=== PATIENT | male | born 1950 | race Caucasian/White ===

== ENCOUNTER 2021-03-09 16:27 | Inpatient (IN) | payer MEDICARE ==
[2021-03-09] MEDS ORDERED: HYDROmorphone 0.5 MG/0.5 ML Syringe IVPUSH ONE (17:56)
[2021-03-09] MEDS ORDERED: Sodium Chloride 0.9% 1,000 ML IV SCH (18:00)
--- NOTE | 2021-03-09 18:02 | EDM.PDOC ---
ED HPI GENERAL MEDICAL PROBLEM - General Chief Complaint: Abdominal Pain Stated Complaint: STOMACH PAIN Time Seen by Provider: 03/09/21 17:50 Source of Information: Reports: Patient History Limitations: Reports: No Limitations - History of Present Illness INITIAL COMMENTS - FREE TEXT/NARRATIVE: 70-year-old male who has had worsening epigastric pain for the past 3 days, has developed peritoneal irritation but no nausea or vomiting, no radiation of pain to his back, no fevers or chills. He is very fatigued, denies any change in bowels. No history of abdominal surgeries. He drinks "3 cases of beer a year". He has been told he is a diabetic but stopped taking all of his medication 5 months ago because he just did not want to take them. No fevers or chills. Onset: Gradual Duration: Day(s): (3 days) Location: Reports: Abdomen (Upper abdomen, epigastric) Quality: Reports: Sharp, Stabbing Worsens with: Reports: Movement Associated Symptoms: Reports: Malaise, Weakness, Other (Pain with breathing but no shortness of breath) Epigastric Pain Score (Numeric/FACES): 8 - Related Data Allergies Allergy/AdvReac Type Severity Reaction Status Date / Time No Known Allergies Allergy Verified 03/09/21 19:43 Home Meds: Home Meds NK [No Known Home Meds] 03/09/21 [History] Past Medical History HEENT History: Reports: Impaired Vision Respiratory History: Reports: COPD - Infectious Disease History Infectious Disease History: Reports: Chicken Pox, Measles, Mumps Social & Family History - Tobacco Use Tobacco Use Status *Q: Current Every Day Tobacco User Years of Tobacco use: 60 Packs/Tins Daily: 0.5 - Caffeine Use Caffeine Use: Reports: Coffee, Soda, Tea - Recreational Drug Use Recreational Drug Use: No ED ROS GENERAL - Review of Systems Review Of Systems: See Below Constitutional: Reports: Malaise, Decreased Appetite. Denies: Fever, Chills HEENT: Reports: No Symptoms Respiratory: Reports: Pleuritic Chest Pain Cardiovascular: Denies: Palpitations Endocrine: Reports: Fatigue GI/Abdominal: Reports: Abdominal Pain, Decreased Appetite. Denies: Constipation, Diarrhea, Nausea, Vomiting : Reports: Other (Increased urinary frequency, no dysuria) Skin: Reports: No Symptoms Neurological: Reports: Weakness. Denies: Headache Psychiatric: Reports: No Symptoms ED EXAM, GI/ABD - Physical Exam Exam: See Below Exam Limited By: No Limitations General Appearance: Alert, Mild Distress, Other (Looks fairly uncomfortable, more comfortable lying on his left side) Eyes: Bilateral: Normal Appearance (No jaundice) Head: Atraumatic Respiratory/Chest: Lungs Clear Cardiovascular: Regular Rate, Rhythm GI/Abdominal Exam: Guarding (Significant guarding and rebound tenderness across the upper abdomen especially epigastric area) Extremities: No: Pedal Edema Neurological: Alert, Oriented Psychiatric: Flat Affect Skin Exam: Warm, Dry Course - Vital Signs Last Recorded V/S: Last Vital Signs Temp 97.7 F 03/09/21 23:21 Pulse 89 03/10/21 00:00 Resp 16 03/10/21 00:00 BP 127/76 03/10/21 00:00 Pulse Ox 96 03/10/21 00:00 - Orders/Labs/Meds Orders: Medication Orders Dextrose/Water (50% Dextrose In Water 50 Ml Syringe) 50 ml IVPUSH ONETIME PRN PRN Reason: Blood Glucose Enoxaparin Sodium (Enoxaparin 40 Mg/0.4 Ml Syringe) 40 mg SUBCUT DAILY LAUREN Last Admin: 03/09/21 23:01 Dose: 40 mg Documented by: VARHJAM Sodium Chloride (Normal Saline) 2,000 mls @ 500 mls/hr IV .CONTINUOUS PRN PRN Reason: Blood Glucose Dextrose/Sodium Chloride (Dextrose 5%-1/2 Ns) 1,000 mls @ 150 mls/hr IV .CONTINUOUS PRN PRN Reason: Blood Glucose Last Admin: 03/09/21 22:32 Dose: 150 mls/hr Documented by: VARHJAM Potassium Chloride 20 meq/ (Premix) 100 mls @ 50 mls/hr IV Q2H PRN PRN Reason: Hypokalemia Potassium Chloride 20 meq/ (Premix) 100 mls @ 50 mls/hr IV Q2H PRN PRN Reason: Hypokalemia Magnesium Sulfate (Magnesium Sulfate In Water 2 Gm/50 Ml) 50 mls @ 25 mls/hr IV ONETIME PRN PRN Reason: low magnesium Sodium Phosphate 60 mmole/ (Sodium Chloride) 270 mls @ 62.5 mls/hr IV ONETIME PRN PRN Reason: Low phophorus Insulin Regular in 0.9 % NACL (Myxredlin In Ns 100 Unit/100 Ml) 100 mls @ 7.484 mls/hr IV ASDIRECTED LAUREN; Protocol Last Infusion: 03/10/21 00:04 Dose: 0.05 units/kg/hr, 4 mls/hr Documented by: JESSIE Cosigned by: ALANNA Infusion: 03/09/21 23:09 Dose: 0.04 units/kg/hr, 3 mls/hr Documented by: JESSIE Cosigned by: ALANNA Admin: 03/09/21 22:20 Dose: 0.05 units/kg/hr, 4 mls/hr Documented by: JESSIE Cosigned by: ALANNA Insulin Glargine (Insulin Glargine,Human Rec. Analog 100 Units/Ml 3 Ml Pen) 30 units SUBCUT BEDTIME LAUREN Last Admin: 03/09/21 23:10 Dose: 30 units Documented by: JESSIE Cosigned by: ALANNA Ondansetron HCl (Ondansetron 4 Mg/2 Ml Sdv) 4 mg IV Q4H PRN PRN Reason: Nausea/Vomiting Oxycodone HCl (Oxycodone 5 Mg Tab) 5 mg PO Q4H PRN PRN Reason: Pain (moderate 4-6) Pantoprazole Sodium (Pantoprazole 40 Mg Vial) 40 mg IV Q12H [facility] Polyethylene Glycol (Polyethylene Glycol 3350 Powder 17 Gm Packet) 17 gm PO DAILY PRN PRN Reason: Constipation Potassium Chloride (Potassium Chloride 10% 20 Meq/15 Ml Soln 15 Ml Ud Cup) 20 meq PO NOW PRN PRN Reason: Hypokalemia Last Admin: 03/09/21 23:18 Dose: 20 meq Documented by: JESSIE Potassium Chloride (Potassium Chloride 10% 20 Meq/15 Ml Soln 15 Ml Ud Cup) 40 meq PO NOW PRN PRN Reason: Hypokalemia Potassium Chloride (Potassium Chloride 10% 20 Meq/15 Ml Soln 15 Ml Ud Cup) 40 meq PO Q2H PRN PRN Reason: Hypokalemia Sodium Chloride (Sodium Chloride 0.9% 10 Ml Syringe) 10 ml FLUSH ASDIRECTED PRN PRN Reason: Keep Vein Open Labs: Laboratory Tests 03/09/21 03/09/21 03/09/21 Range/Units 17:53 18:15 18:15 WBC 9.8 (4.5-11.0) K/uL RBC 4.80 (4.30-5.90) M/uL Hgb 15.6 H (12.0-15.0) g/dL Hct 44.9 (40.0-54.0) % MCV 94 (80-98) fL MCH 33 H (27-31) pg MCHC 35 (32-36) % Plt Count 120 L (150-400) K/uL Neut % (Auto) 68.0 H (36-66) % Lymph % (Auto) 20.2 L (24-44) % Shelby % (Auto) 10.7 H (2-6) % Eos % (Auto) 1.0 L (2-4) % Baso % (Auto) 0.1 (0-1) % Sodium 125 L (140-148) mmol/L Potassium 5.1 (3.6-5.2) mmol/L Chloride 91 L (100-108) mmol/L Carbon Dioxide 25 (21-32) mmol/L Anion Gap 14.1 H (5.0-14.0) mmol/L BUN 20 H (7-18) mg/dL Creatinine 1.4 H (0.8-1.3) mg/dL Est Cr Clr Drug Dosing 47.21 mL/min Estimated GFR (MDRD) 50 L (>60) Glucose 812 H* (74-106) mg/dL Lactic Acid (0.4-2.0) mmol/L Calcium 8.6 (8.5-10.1) mg/dL Total Bilirubin 0.6 (0.2-1.0) mg/dL AST 73 H (15-37) U/L ALT 109 H (12-78) U/L Alkaline Phosphatase 276 H (46-116) U/L Total Protein 7.6 (6.4-8.2) g/dL Albumin 2.6 L (3.4-5.0) g/dL Globulin 5.0 H (2.3-3.5) g/dL Albumin/Globulin Ratio 0.5 L (1.2-2.2) Lipase 94 (73-393) U/L Urine Color Yellow (YELLOW) Urine Appearance Clear (CLEAR) Urine pH 6.5 (5.0-8.0) Ur Specific Crystal 1.010 (1.008-1.030) Urine Protein Negative (NEGATIVE) mg/dL Urine Glucose (UA) 500 H (NEGATIVE) mg/dL Urine Ketones Negative (NEGATIVE) mg/dL Urine Occult Blood Trace-intact H (NEGATIVE) Urine Nitrite Negative (NEGATIVE) Urine Bilirubin Negative (NEGATIVE) Urine Urobilinogen 0.2 (0.2-1.0) EU/dL Ur Leukocyte Esterase Negative (NEGATIVE) Urine RBC 0-5 (0-5) Urine WBC Not seen (0-5) Ur Epithelial Cells Not seen Amorphous Sediment Not seen Urine Bacteria Not seen Urine Mucus Not seen Influenza Type A RNA (NEGATIVE) RSV RNA (INAAT) (NEGATIVE) Influenza Type B RNA (NEGATIVE) SARS-CoV-2 RNA (MINDY) (NEGATIVE) 03/09/21 03/09/21 Range/Units 18:15 18:28 WBC (4.5-11.0) K/uL RBC (4.30-5.90) M/uL Hgb (12.0-15.0) g/dL Hct (40.0-54.0) % MCV (80-98) fL MCH (27-31) pg MCHC (32-36) % Plt Count (150-400) K/uL Neut % (Auto) (36-66) % Lymph % (Auto) (24-44) % Shelby % (Auto) (2-6) % Eos % (Auto) (2-4) % Baso % (Auto) (0-1) % Sodium (140-148) mmol/L Potassium (3.6-5.2) mmol/L Chloride (100-108) mmol/L Carbon Dioxide (21-32) mmol/L Anion Gap (5.0-14.0) mmol/L BUN (7-18) mg/dL Creatinine (0.8-1.3) mg/dL Est Cr Clr Drug Dosing mL/min Estimated GFR (MDRD) (>60) Glucose (74-106) mg/dL Lactic Acid 4.1 H (0.4-2.0) mmol/L Calcium (8.5-10.1) mg/dL Total Bilirubin (0.2-1.0) mg/dL AST (15-37) U/L ALT (12-78) U/L Alkaline Phosphatase (46-116) U/L Total Protein (6.4-8.2) g/dL Albumin (3.4-5.0) g/dL Globulin (2.3-3.5) g/dL Albumin/Globulin Ratio (1.2-2.2) Lipase (73-393) U/L Urine Color (YELLOW) Urine Appearance (CLEAR) Urine pH (5.0-8.0) Ur Specific Crystal (1.008-1.030) Urine Protein (NEGATIVE) mg/dL Urine Glucose (UA) (NEGATIVE) mg/dL Urine Ketones (NEGATIVE) mg/dL Urine Occult Blood (NEGATIVE) Urine Nitrite (NEGATIVE) Urine Bilirubin (NEGATIVE) Urine Urobilinogen (0.2-1.0) EU/dL Ur Leukocyte Esterase (NEGATIVE) Urine RBC (0-5) Urine WBC (0-5) Ur Epithelial Cells Amorphous Sediment Urine Bacteria Urine Mucus Influenza Type A RNA Negative (NEGATIVE) RSV RNA (INAAT) Negative (NEGATIVE) Influenza Type B RNA Negative (NEGATIVE) SARS-CoV-2 RNA (MINDY) Negative (NEGATIVE) Meds: Medications Generic Name Dose Route Start Last Admin Trade Name Freq PRN Reason Stop Dose Admin Dextrose/Water 50 ml 03/09/21 21:45 50% Dextrose In Water 50 Ml Syringe IVPUSH ONETIME PRN Blood Glucose Enoxaparin Sodium 40 mg 03/09/21 21:45 03/09/21 23:01 Enoxaparin 40 Mg/0.4 Ml Syringe SUBCUT 40 mg DAILY LAUREN Administration Sodium Chloride 2,000 mls @ 500 mls/hr 03/09/21 21:45 Normal Saline IV .CONTINUOUS PRN Blood Glucose Dextrose/Sodium Chloride 1,000 mls @ 150 mls/hr 03/09/21 21:45 03/09/21 22:32 Dextrose 5%-1/2 Ns IV 150 mls/hr .CONTINUOUS PRN Administration Blood Glucose Potassium Chloride 20 meq/ 100 mls @ 50 mls/hr 03/09/21 21:45 Premix IV Q2H PRN Hypokalemia Potassium Chloride 20 meq/ 100 mls @ 50 mls/hr 03/09/21 21:45 Premix IV Q2H PRN Hypokalemia Magnesium Sulfate 50 mls @ 25 mls/hr 03/09/21 21:45 Magnesium Sulfate In Water 2 Gm/50 Ml IV ONETIME PRN low magnesium Sodium Phosphate 60 mmole/ 270 mls @ 62.5 mls/hr 03/09/21 21:45 Sodium Chloride IV ONETIME PRN Low phophorus Insulin Regular in 0.9 % NACL 100 mls @ 7.484 mls/hr 03/09/21 21:45 03/10/21 00:04 Myxredlin In Ns 100 Unit/100 Ml IV 0.05 units/kg/hr ASDIRECTED LAUREN 4 mls/hr Infusion Protocol 0.1 UNITS/KG/HR Insulin Glargine 30 units 03/09/21 21:45 03/09/21 23:10 Insulin Glargine,Human Rec. Analog 100 Units/Ml 3 Ml Pen SUBCUT 30 units BEDTIME LAUREN Administration Ondansetron HCl 4 mg 03/09/21 21:45 Ondansetron 4 Mg/2 Ml Sdv IV Q4H PRN Nausea/Vomiting Oxycodone HCl 5 mg 03/09/21 21:45 Oxycodone 5 Mg Tab PO Q4H PRN Pain (moderate 4-6) Pantoprazole Sodium 40 mg 03/09/21 21:00 Pantoprazole 40 Mg Vial IV Q12H LAUREN Polyethylene Glycol 17 gm 03/09/21 21:45 Polyethylene Glycol 3350 Powder 17 Gm Packet PO DAILY PRN Constipation Potassium Chloride 20 meq 03/09/21 21:45 03/09/21 23:18 Potassium Chloride 10% 20 Meq/15 Ml Soln 15 Ml Ud Cup PO 20 meq NOW PRN Administration Hypokalemia Potassium Chloride 40 meq 03/09/21 21:45 Potassium Chloride 10% 20 Meq/15 Ml Soln 15 Ml Ud Cup PO NOW PRN Hypokalemia Potassium Chloride 40 meq 03/09/21 21:45 Potassium Chloride 10% 20 Meq/15 Ml Soln 15 Ml Ud Cup PO Q2H PRN Hypokalemia Sodium Chloride 10 ml 03/09/21 21:45 Sodium Chloride 0.9% 10 Ml Syringe FLUSH ASDIRECTED PRN Keep Vein Open Discontinued Medications Generic Name Dose Route Start Last Admin Trade Name Freq PRN Reason Stop Dose Admin Hydromorphone HCl 0.5 mg 03/09/21 17:56 03/09/21 18:26 Hydromorphone 0.5 Mg/0.5 Ml Syringe IVPUSH 03/09/21 17:57 0.5 mg ONETIME ONE Administration Sodium Chloride 1,000 mls @ 250 mls/hr 03/09/21 18:00 03/09/21 18:26 Normal Saline IV 250 mls/hr ASDIRECTED LARUEN Administration Insulin Regular in 0.9 % NACL 100 unit in 100 mls @ 7.484 mls/hr 03/09/21 19:30 03/09/21 20:07 Myxredlin In Ns 100 Unit/100 Ml IV 0.1 units/kg/hr ASDIRECTED LAUREN 7.484 mls/hr Administration 0.1 UNITS/KG/HR Sodium Chloride 1,000 mls @ 999 mls/hr 03/09/21 19:26 03/09/21 20:08 Normal Saline IV 03/09/21 20:26 999 mls/hr ONETIME ONE Administration Sodium Chloride 90 mls @ 3.5 mls/sec 03/09/21 19:45 03/09/21 19:53 Normal Saline IV 3.5 mls/sec ASDIRECTED LAUREN Administration Potassium Chloride 20 meq/ 100 mls @ 50 mls/hr 03/09/21 21:45 03/09/21 23:28 Premix IV 03/09/21 23:44 Not Given ONETIME ONE Insulin Human Regular 10 unit 03/09/21 19:25 03/09/21 19:44 Insulin Regular, Human 100 Units/Ml 3 Ml Vial IVPUSH 03/09/21 19:26 10 unit ONETIME ONE Administration Iopamidol 113 ml 03/09/21 19:45 03/09/21 19:53 Iopamidol 612 Mg/Ml 150 Ml Bottle IV 113 ml . DIRECTED LAUREN Administration - Re-Assessments/Exams Free Text/Narrative Re-Assessment/Exam: 03/09/21 18:01 IV will be started at 250 cc an hour of normal saline, patient was given 0.5 mg of IV Dilaudid. UA obtained, CBC CMP lactic acid and lipase as well as a 4 Plex Covid study. He is unvaccinated. Will likely need a CT of his abdomen. 03/09/21 20:47 Patient responded very well to the pain control with IV Dilaudid and fluids. Lipase was normal, white count was normal but unfortunately his glucose was over 800. GFR was 50, creatinine 1.4 so an IV enhanced contrast of the abdomen and pelvis was obtained with fluid hydration. UA returned positive for glucose but no infection. CT results is as follows IMPRESSION: 1. Cirrhotic liver with at least 2 lesions which technically cannot be characterized on single portal venous phase, but the larger is highly worrisome for hepatocellular carcinoma. 2. Numerous perigastric and esophageal varices are compatible with portal hypertension. Patient was given 10 units of IV insulin and started on a 0.1 unit/kg/h drip. Dr. Pace was consulted to consider admission to obtain glycemic control and consider further work-up of the abdominal pain. With the noncompliance issues and the CT findings, one has to question whether his alcohol intake is a much bigger problem than he is admitting to at this time. He may also benefit from an EGD to assess for gastritis or ulcerations. Departure - Departure Time of Disposition: 21:19 Disposition: Admitted As Inpatient 68 Clinical Impression: Hyperglycemia Abdominal pain Qualifiers: Abdominal location: epigastric Qualified Code(s): R10.13 - Epigastric pain - Discharge Information Sepsis Event Note (ED) - Focused Exam Vital Signs: Vital Signs Temp Pulse Resp BP Pulse Ox 03/09/21 20:00 84 157/75 H 03/09/21 19:00 87 161/72 H 03/09/21 18:28 97.6 F 86 16 179/83 H 96 03/09/21 17:02 97.6 F 86 16 179/83 H 96
[2021-03-09 19:12] LABS: CORONAVIRUS COVID-19 NAA NEGATIVE (NEGATIVE)
[2021-03-09] MEDS ORDERED: Insulin Regular, Human 100 Units/ML 3 ML Vial IVPUSH ONE (19:25)
[2021-03-09] MEDS ORDERED: Sodium Chloride 0.9% 1,000 ML IV ONE (19:26)
[2021-03-09] MEDS ORDERED: Sodium Chloride 0.9% 90 ML IV SCH (19:45)
[2021-03-09] MEDS ORDERED: Iopamidol 612 MG/ML 150 ML Bottle IV SCH (19:45)
--- NOTE | 2021-03-09 20:32 | CRLCT ---
For Patients: As a result of the Century Cures Act, medical imaging exams and procedure reports are released immediately into your electronic medical record. You may view this report before your referring provider. If you have questions, please contact your health care provider. INDICATION: Epigastric pain. TECHNIQUE: CT abdomen and pelvis acquired with 112 cc Omnipaque 300 IV contrast. COMPARISON: None. FINDINGS: Lower chest: Small sliding hiatal hernia. Liver: Cirrhotic liver morphology with a nodular contour and left hepatic lobe hypertrophy. The liver contains at least 2 distinct lesions which include: Hypervascular lesion near the dome in segment 8 measures approximately 1.5 x 1.5 cm (05/11) and is homogeneously hyperdense. Heterogeneous lesion in segment 6/7 measures approximately 4.9 x 4.9 cm () and shows capsular enhancement. Gallbladder and bile ducts: Distended. Small layering gallstones are suggested. No wall thickening or pericholecystic fluid. Pancreas: Mild diffuse atrophy. No focal mass or ductal dilation. Spleen: Unremarkable. Normal in size. No masses. Adrenal glands: Unremarkable. No nodules. Kidneys: Cortical hypodensities are most suggestive of cysts. No solid masses or hydronephrosis. GI tract: Unremarkable. Normal in caliber. No sign of mass or inflammation. Normal appendix. Vasculature: Atherosclerotic calcifications of the abdominal aorta and its branches. The main portal vein is patent. Extensive esophageal and perigastric varices. Lymph nodes: No lymphadenopathy. Omentum/Peritoneum/Abdominal Wall: Unremarkable. No sign of mass or infiltration. No free air or significant free fluid. Fat containing left inguinal hernia. Pelvis: Unremarkable. Bones: Unremarkable for age. IMPRESSION: 1. Cirrhotic liver with at least 2 lesions which technically cannot be characterized on single portal venous phase, but the larger is highly worrisome for hepatocellular carcinoma. 2. Numerous perigastric and esophageal varices are compatible with portal hypertension. Please note that all CT scans at this facility use dose modulation, iterative reconstruction, and/or weight-based dosing when appropriate to reduce radiation dose to as low as reasonably achievable. Dictated by Reuben Mejia MD @ 03/09/2021 8:30:24 PM (Electronically Signed)
--- NOTE | 2021-03-09 21:22 | PCM.HP.2 ---
H&P History of Present Illness - General Date of Service: 03/09/21 Admit Problem/Dx: Admission Diagnosis/Problem Admission Diagnosis/Problem Hyperglycemia Source of Information: Patient, Provider, RN Notes Reviewed History Limitations: Reports: No Limitations - History of Present Illness Initial Comments - Free Text/Narative: Mr. Trujillo is a 70-year-old gentleman who was admitted through the emergency department with marked hyperglycemia and abdominal pain secondary to unc ontrolled type 2 diabetes mellitus. He had been taking insulin for management of his diabetes but stopped taking it several months ago. He tries to manage his diabetes by what he eats and drinks but has not been checking blood sugar levels. He came into the emergency department because of epigastric pain that he has had for the past 2 to 3 days. Pain is described as an intense ache that is constant, does not seem to vary with eating. Other than a glucose level of 800 to his labs were fairly unremarkable. CT scan of the abdomen and pelvis shows evidence of hepatic cirrhosis and a mass worrisome for hepatocellular carcinoma. He reports that he is known about the cirrhosis but has not done anything about it and really is not interested in much in the way of further evaluation or management of cirrhosis or possible malignancy. He has a history of alcohol and drug abuse but strongly denies heavy use of alcohol over the past few months. Epigastric Pain Score (Numeric/FACES): 8 - Related Data Allergies/Adverse Reactions: Allergies Allergy/AdvReac Type Severity Reaction Status Date / Time No Known Allergies Allergy Verified 03/09/21 19:43 Home Medications: Home Meds NK [No Known Home Meds] 03/09/21 [History] Past Medical History HEENT History: Reports: Impaired Vision Respiratory History: Reports: COPD - Infectious Disease History Infectious Disease History: Reports: Chicken Pox, Measles, Mumps Social & Family History - Tobacco Use Tobacco Use Status *Q: Current Every Day Tobacco User Years of Tobacco use: 60 Packs/Tins Daily: 0.5 - Caffeine Use Caffeine Use: Reports: Coffee, Soda, Tea - Recreational Drug Use Recreational Drug Use: No H&P Review of Systems - Review of Systems: Review Of Systems: See Below General: Reports: Malaise, Weakness, Fatigue HEENT: Reports: No Symptoms Pulmonary: Reports: No Symptoms Cardiovascular: Reports: No Symptoms Gastrointestinal: Reports: Abdominal Pain, Distension. Denies: Constipation, Diarrhea, Difficulty Swallowing, Hematemesis, Hematochezia, Melena, Nausea, Vomiting Genitourinary: Reports: No Symptoms Musculoskeletal: Reports: No Symptoms Skin: Reports: No Symptoms Psychiatric: Reports: No Symptoms Neurological: Reports: No Symptoms Hematologic/Lymphatic: Reports: No Symptoms Immunologic: Reports: No Symptoms Exam - Exam Exam: See Below - Vital Signs Vital Signs: Last Vital Signs Temp 97.6 F 03/09/21 18:28 Pulse 84 03/09/21 20:00 Resp 16 03/09/21 18:28 BP 157/75 H 03/09/21 20:00 Pulse Ox 96 03/09/21 18:28 Weight: 165 lb - Exam Quality Assessment: DVT Prophylaxis General: Alert, Oriented, Cooperative, Moderate Distress HEENT: Conjunctiva Clear, Hearing Intact, Normal Nasal Septum, Posterior Pharynx Clear, Pupils Equal. No: Mucosa Moist & [place] Neck: Supple, Trachea Midline, +2 Carotid Pulse wo Bruit Lungs: Clear to Auscultation, Normal Respiratory Effort, Decreased Breath Sounds Cardiovascular: Regular Rate, Regular Rhythm, Normal S1, Normal S2. No: Systolic Murmur, Diastolic Murmur GI/Abdominal Exam: Soft, No Organomegaly, Tender. No: Distended, Guarding, Rigid, Rebound Back Exam: Normal Inspection, Full Range of Motion Extremities: Non-Tender, No Pedal Edema Skin: Warm, Dry, Intact Neurological: Cranial Nerves Intact, Strength Equal Bilateral, Normal Speech, Normal Tone. No: Sensation Intact, Focal Deficit Neuro Extensive - Mental Status: Alert, Oriented x3, Normal Mood/Affect, Normal Cognition, Memory Intact - Patient Data Lab Results Last 24 hrs: Laboratory Results - last 24 hr 03/09/21 03/09/21 03/09/21 Range/Units 17:53 18:15 18:15 WBC 9.8 (4.5-11.0) K/uL RBC 4.80 (4.30-5.90) M/uL Hgb 15.6 H (12.0-15.0) g/dL Hct 44.9 (40.0-54.0) % MCV 94 (80-98) fL MCH 33 H (27-31) pg MCHC 35 (32-36) % Plt Count 120 L (150-400) K/uL Neut % (Auto) 68.0 H (36-66) % Lymph % (Auto) 20.2 L (24-44) % [place] % (Auto) 10.7 H (2-6) % Eos % (Auto) 1.0 L (2-4) % Baso % (Auto) 0.1 (0-1) % Sodium 125 L (140-148) mmol/L Potassium 5.1 (3.6-5.2) mmol/L Chloride 91 L (100-108) mmol/L Carbon Dioxide 25 (21-32) mmol/L Anion Gap 14.1 H (5.0-14.0) mmol/L BUN 20 H (7-18) mg/dL Creatinine 1.4 H (0.8-1.3) mg/dL Est Cr Clr Drug Dosing 47.21 mL/min Estimated GFR (MDRD) 50 L (>60) Glucose 812 H* (74-106) mg/dL Lactic Acid (0.4-2.0) mmol/L Calcium 8.6 (8.5-10.1) mg/dL Total Bilirubin 0.6 (0.2-1.0) mg/dL AST 73 H (15-37) U/L ALT 109 H (12-78) U/L Alkaline Phosphatase 276 H (46-116) U/L Total Protein 7.6 (6.4-8.2) g/dL Albumin 2.6 L (3.4-5.0) g/dL Globulin 5.0 H (2.3-3.5) g/dL Albumin/Globulin Ratio 0.5 L (1.2-2.2) Lipase 94 (73-393) U/L Urine Color Yellow (YELLOW) Urine Appearance Clear (CLEAR) Urine pH 6.5 (5.0-8.0) Ur Specific [place] 1.010 (1.008-1.030) Urine Protein Negative (NEGATIVE) mg/dL Urine Glucose (UA) 500 H (NEGATIVE) mg/dL Urine Ketones Negative (NEGATIVE) mg/dL Urine Occult Blood Trace-intact H (NEGATIVE) Urine Nitrite Negative (NEGATIVE) Urine Bilirubin Negative (NEGATIVE) Urine Urobilinogen 0.2 (0.2-1.0) EU/dL Ur Leukocyte Esterase Negative (NEGATIVE) Urine RBC 0-5 (0-5) Urine WBC Not seen (0-5) Ur Epithelial Cells Not seen Amorphous Sediment Not seen Urine Bacteria Not seen Urine Mucus Not seen Influenza Type A RNA (NEGATIVE) RSV RNA (INAAT) (NEGATIVE) Influenza Type B RNA (NEGATIVE) SARS-CoV-2 RNA (MINDY) (NEGATIVE) 03/09/21 03/09/21 Range/Units 18:15 18:28 WBC (4.5-11.0) K/uL RBC (4.30-5.90) M/uL Hgb (12.0-15.0) g/dL Hct (40.0-54.0) % MCV (80-98) fL MCH (27-31) pg MCHC (32-36) % Plt Count (150-400) K/uL Neut % (Auto) (36-66) % Lymph % (Auto) (24-44) % [place] % (Auto) (2-6) % Eos % (Auto) (2-4) % Baso % (Auto) (0-1) % Sodium (140-148) mmol/L Potassium (3.6-5.2) mmol/L Chloride (100-108) mmol/L Carbon Dioxide (21-32) mmol/L Anion Gap (5.0-14.0) mmol/L BUN (7-18) mg/dL Creatinine (0.8-1.3) mg/dL Est Cr Clr Drug Dosing mL/min Estimated GFR (MDRD) (>60) Glucose (74-106) mg/dL Lactic Acid 4.1 H (0.4-2.0) mmol/L Calcium (8.5-10.1) mg/dL Total Bilirubin (0.2-1.0) mg/dL AST (15-37) U/L ALT (12-78) U/L Alkaline Phosphatase (46-116) U/L Total Protein (6.4-8.2) g/dL Albumin (3.4-5.0) g/dL Globulin (2.3-3.5) g/dL Albumin/Globulin Ratio (1.2-2.2) Lipase (73-393) U/L Urine Color (YELLOW) Urine Appearance (CLEAR) Urine pH (5.0-8.0) Ur Specific [place] (1.008-1.030) Urine Protein (NEGATIVE) mg/dL Urine Glucose (UA) (NEGATIVE) mg/dL Urine Ketones (NEGATIVE) mg/dL Urine Occult Blood (NEGATIVE) Urine Nitrite (NEGATIVE) Urine Bilirubin (NEGATIVE) Urine Urobilinogen (0.2-1.0) EU/dL Ur Leukocyte Esterase (NEGATIVE) Urine RBC (0-5) Urine WBC (0-5) Ur Epithelial Cells Amorphous Sediment Urine Bacteria Urine Mucus Influenza Type A RNA Negative (NEGATIVE) RSV RNA (INAAT) Negative (NEGATIVE) Influenza Type B RNA Negative (NEGATIVE) SARS-CoV-2 RNA (MINDY) Negative (NEGATIVE) Result Diagrams: 03/09/21 18:15 03/09/21 18:15 Sepsis Event Note - Focused Exam Vital Signs: Vital Signs Temp Pulse Resp BP Pulse Ox 03/09/21 20:00 84 157/75 H 03/09/21 19:00 87 161/72 H 03/09/21 18:28 97.6 F 86 16 179/83 H 96 03/09/21 17:02 97.6 F 86 16 179/83 H 96 *Q Meaningful Use (ADM) - VTE Risk Assess *Q Each Risk Factor Represents 1 Point: Obesity ( BMI > 25 kg/m2) Total Score 1 Point Risk Factors: 1 Each Risk Factor Represents 2 Points: Age 60 - 74 Years Total Score 2 Point Risk Factors: 2 Each Risk Factor Represents 3 Points: None Total Score 3 Point Risk Factors: 0 Each Risk Factor Represents 5 Points: None Total Score 5 Point Risk Factors: 0 Venous Thromboembolism Risk Factor Score *Q: 3 Problem List Initiated/Reviewed/Updated: Yes Orders Last 24hrs: Active Orders 24 hr Category Date Time Status Patient Status Manage Transfer [TRANSFER] Routine ADT 03/09/21 21:02 Ordered Insulin Regular in 0.9 % NACL [Myxredlin in NS 100 UNIT Med 03/09/21 19:30 Active /100 ML] 100 unit in 100 ml IV ASDIRECTED Iopamidol [Isovue-300 (61%)] Med 03/09/21 19:45 Active 113 ml IV . DIRECTED Sodium Chloride 0.9% [Normal Saline] 1,000 ml Med 03/09/21 18:00 Active IV ASDIRECTED Sodium Chloride 0.9% [Normal Saline] 90 ml Med 03/09/21 19:45 Active IV ASDIRECTED Isolation [COMM] Stat Oth 03/09/21 17:53 Ordered Resuscitation Status Routine Resus Stat 03/09/21 21:04 Ordered Medication Orders Sodium Chloride (Normal Saline) 1,000 mls @ 250 mls/hr IV ASDIRECTED [facility] Last Admin: 03/09/21 18:26 Dose: 250 mls/hr Documented by: RYLAN Insulin Regular in 0.9 % NACL (Myxredlin In Ns 100 Unit/100 Ml) 100 unit in 100 mls @ 7.484 mls/hr IV ASDIRECTED [facility] Last Admin: 03/09/21 20:07 Dose: 0.1 units/kg/hr, 7.484 mls/hr Documented by: JONO Cosigned by: SHANI Sodium Chloride (Normal Saline) 90 mls @ 3.5 mls/sec IV ASDIRECTED [facility] Last Admin: 03/09/21 19:53 Dose: 3.5 mls/sec Documented by: MAXIMINO Iopamidol (Iopamidol 612 Mg/Ml 150 Ml Bottle) 113 ml IV . DIRECTED [facility] Last Admin: 03/09/21 19:53 Dose: 113 ml Documented by: MAXIMINO Assessment/Plan Comment:: ASSESSMENT AND PLAN HYPERGLYCEMIA-secondary to uncontrolled and untreated type 2 diabetes mellitus. He has had diabetes for many years and stopped taking all of his medications several months ago. On evaluation in the emergency department today blood sugar noted to be markedly elevated at 800. -IV fluids per protocol -IV insulin per protocol -Lantus insulin 30 units subcu tonight -Glucometers every 1 hour -Electrolyte management and testing per protocol EPIGASTRIC ABDOMINAL PAIN-likely secondary to gastritis -Protonix 40 mg IV every 12 hours -May need to consider upper GI endoscopy TYPE 2 DIABETES MELLITUS-on no medication over the past several months -Hopefully will get him to except at least once daily long-acting insulin-at the present time he is resistant to considering this HEPATIC CIRRHOSIS-I suspect that this is secondary to prior alcohol use, he also admits to previous IV drug use -Laboratory tests; test for viral hepatitis, ferritin, ceruloplasmin, JOEY, anti-smooth muscle antibody, antimitochondrial antibody -Encouraged him to consider outpatient gastroenterology consult HEPATIC MASS-concerning for hepatocellular carcinoma -Gastroenterology referral as above -will likely need to consider biopsy if he agrees MAINTENANCE ISSUES -DVT prophylaxis; Lovenox 40 mg subcu daily -GI prophylaxis; Protonix as above -Parker catheter; not indicated -Nutrition; consistent carbohydrate diet -Nicotine dependence; not required CODE STATUS-FULL CODE ADMISSION STATUS-patient will be admitted to inpatient status, expect at least a 2 night hospital stay for evaluation and management of problems as outlined above. At the time of this admission I do not reasonably expected evaluation and management of this problem will require more than a 96 hour hospital stay. DISPOSITION-anticipate discharge to home after the hospital stay. PRIMARY CARE PROVIDER-he currently does not have a primary care provider - Mortality Measure Prognosis:: Poor
[2021-03-09] MEDS ORDERED: Magnesium Sulfate/Water 50 ML IV PRN (21:45)
[2021-03-09] MEDS ORDERED: Ondansetron 4 MG/2 ML SDV IV PRN (21:45)
[2021-03-09] MEDS ORDERED: Sodium Phosphate 60 MMOLE in Sodium Chloride 0.9% 250 ML IV PRN (21:45)
[2021-03-09] MEDS ORDERED: Potassium Chloride 20 MEQ in Premix Bag 1 BAG IV ONE (21:45)
[2021-03-09] MEDS ORDERED: Sodium Chloride 0.9% 2,000 ML IV PRN (21:45)
[2021-03-09] MEDS ORDERED: Insulin Glargine,Human Rec. Analog 100 Units/ML 3 ML Pen SUBCUT SCH (21:45)
[2021-03-09] MEDS ORDERED: Enoxaparin 40 MG/0.4 ML Syringe SUBCUT SCH (21:45)
[2021-03-09] MEDS ORDERED: Potassium Chloride 10% 20 MEQ/15 ML Soln 15 ML UD Cup PO PRN ×3 (21:45)
[2021-03-09] MEDS ORDERED: 50% Dextrose in Water 50 ML Syringe IVPUSH PRN (21:45)
[2021-03-09] MEDS ORDERED: Sodium Chloride 0.9% 10 ML Syringe FLUSH PRN (21:45)
[2021-03-09] MEDS ORDERED: Polyethylene Glycol 3350 Powder 17 GM Packet PO PRN (21:45)
[2021-03-09] MEDS ORDERED: Potassium Chloride 20 MEQ in Premix Bag 1 BAG IV PRN ×4 (21:45)
[2021-03-09] MEDS: Insulin Regular in 0.9 % NACL 100 ML IV SCH (22:20)
[2021-03-09] MEDS: Dextrose 5%-0.45% NaCl 1,000 ML IV PRN (22:32)
[2021-03-10] MEDS: Insulin Regular in 0.9 % NACL 100 ML IV SCH (01:06)
[2021-03-10] MEDS: Pantoprazole 40 MG Vial IV SCH ×2 (02:21→13:14)
[2021-03-10] MEDS ORDERED: Sodium Chloride 0.9% 1,000 ML IV PRN (07:27)
[2021-03-10] MEDS: oxyCODONE 5 MG Tab PO PRN ×3 (08:49→20:11)
[2021-03-10] MEDS: Dextrose 5%-0.45% NaCl 1,000 ML IV PRN (08:59)
[2021-03-10] MEDS ORDERED: Insulin Glargine,Human Rec. Analog 100 Units/ML 3 ML Pen SUBCUT STA (10:03)
[2021-03-10] MEDS ORDERED: 50% Dextrose in Water 50 ML Syringe IVPUSH PRN ×2 (10:24→16:54)
[2021-03-10] MEDS ORDERED: Glucagon,Human Recombinant 1 MG Vial IM PRN ×2 (10:24→16:54)
[2021-03-10] MEDS: Insulin Lispro 100 Unit/ML 3 ML KwikPen SUBCUT SCH ×4 (10:41→20:02)
--- NOTE | 2021-03-10 14:18 | PCM.PN ---
- General Info Date of Service: 03/10/21 Subjective Update: Mr. Trujillo has improved since admission, although he continues to experience epigastric abdominal pain. Blood sugars are under better control after insulin infusion through the night. He is more accepting of considering daily insulin injections. He still is not interested in any further evaluation of his hepatic cirrhosis and possible hepatocellular carcinoma. Functional Status: Reports: Tolerating Diet, Urinating - Review of Systems General: Reports: Weakness, Fatigue. Denies: Fever, Chills Pulmonary: Reports: No Symptoms Cardiovascular: Reports: No Symptoms Gastrointestinal: Reports: Abdominal Pain. Denies: Difficulty Swallowing, Hematochezia, Melena, Nausea, Vomiting Genitourinary: Reports: No Symptoms - Patient Data Vitals - Most Recent: Last Vital Signs Temp 97.4 F 03/10/21 14:00 Pulse 81 03/10/21 14:00 Resp 19 03/10/21 14:00 BP 122/68 03/10/21 14:00 Pulse Ox 95 03/10/21 14:00 Weight - Most Recent: 168 lb I&O - Last 24 Hours: Intake & Output 03/09/21 03/10/21 03/10/21 22:59 06:59 14:59 Intake Total 740 Output Total 700 Balance 40 Lab Results Last 24 Hours: Laboratory Results - last 24 hr 03/09/21 03/09/21 03/09/21 Range/Units 17:53 18:15 18:15 WBC 9.8 (4.5-11.0) K/uL RBC 4.80 (4.30-5.90) M/uL Hgb 15.6 H (12.0-15.0) g/dL Hct 44.9 (40.0-54.0) % MCV 94 (80-98) fL MCH 33 H (27-31) pg MCHC 35 (32-36) % Plt Count 120 L (150-400) K/uL Neut % (Auto) 68.0 H (36-66) % Lymph % (Auto) 20.2 L (24-44) % [place] % (Auto) 10.7 H (2-6) % Eos % (Auto) 1.0 L (2-4) % Baso % (Auto) 0.1 (0-1) % Sodium 125 L (140-148) mmol/L Potassium 5.1 (3.6-5.2) mmol/L Chloride 91 L (100-108) mmol/L Carbon Dioxide 25 (21-32) mmol/L Anion Gap 14.1 H (5.0-14.0) mmol/L BUN 20 H (7-18) mg/dL Creatinine 1.4 H (0.8-1.3) mg/dL Est Cr Clr Drug Dosing 47.21 mL/min Estimated GFR (MDRD) 50 L (>60) Glucose 812 H* (74-106) mg/dL POC Glucose (74-106) mg/dL Lactic Acid (0.4-2.0) mmol/L Calcium 8.6 (8.5-10.1) mg/dL Phosphorus (2.5-4.9) mg/dL Magnesium (1.8-2.4) mg/dL Ferritin (8-388) ng/ml Total Bilirubin 0.6 (0.2-1.0) mg/dL AST 73 H (15-37) U/L ALT 109 H (12-78) U/L Alkaline Phosphatase 276 H (46-116) U/L Total Protein 7.6 (6.4-8.2) g/dL Albumin 2.6 L (3.4-5.0) g/dL Globulin 5.0 H (2.3-3.5) g/dL Albumin/Globulin Ratio 0.5 L (1.2-2.2) Lipase 94 (73-393) U/L Urine Color Yellow (YELLOW) Urine Appearance Clear (CLEAR) Urine pH 6.5 (5.0-8.0) Ur Specific [place] 1.010 (1.008-1.030) Urine Protein Negative (NEGATIVE) mg/dL Urine Glucose (UA) 500 H (NEGATIVE) mg/dL Urine Ketones Negative (NEGATIVE) mg/dL Urine Occult Blood Trace-intact H (NEGATIVE) Urine Nitrite Negative (NEGATIVE) Urine Bilirubin Negative (NEGATIVE) Urine Urobilinogen 0.2 (0.2-1.0) EU/dL Ur Leukocyte Esterase Negative (NEGATIVE) Urine RBC 0-5 (0-5) Urine WBC Not seen (0-5) Ur Epithelial Cells Not seen Amorphous Sediment Not seen Urine Bacteria Not seen Urine Mucus Not seen Influenza Type A RNA (NEGATIVE) RSV RNA (INAAT) (NEGATIVE) Influenza Type B RNA (NEGATIVE) SARS-CoV-2 RNA (MINDY) (NEGATIVE) 03/09/21 03/09/21 03/09/21 Range/Units 18:15 18:28 22:13 WBC (4.5-11.0) K/uL RBC (4.30-5.90) M/uL Hgb (12.0-15.0) g/dL Hct (40.0-54.0) % MCV (80-98) fL MCH (27-31) pg MCHC (32-36) % Plt Count (150-400) K/uL Neut % (Auto) (36-66) % Lymph % (Auto) (24-44) % [place] % (Auto) (2-6) % Eos % (Auto) (2-4) % Baso % (Auto) (0-1) % Sodium (140-148) mmol/L Potassium (3.6-5.2) mmol/L Chloride (100-108) mmol/L Carbon Dioxide (21-32) mmol/L Anion Gap (5.0-14.0) mmol/L BUN (7-18) mg/dL Creatinine (0.8-1.3) mg/dL Est Cr Clr Drug Dosing mL/min Estimated GFR (MDRD) (>60) Glucose (74-106) mg/dL POC Glucose 237 H (74-106) mg/dL Lactic Acid 4.1 H (0.4-2.0) mmol/L Calcium (8.5-10.1) mg/dL Phosphorus (2.5-4.9) mg/dL Magnesium (1.8-2.4) mg/dL Ferritin (8-388) ng/ml Total Bilirubin (0.2-1.0) mg/dL AST (15-37) U/L ALT (12-78) U/L Alkaline Phosphatase (46-116) U/L Total Protein (6.4-8.2) g/dL Albumin (3.4-5.0) g/dL Globulin (2.3-3.5) g/dL Albumin/Globulin Ratio (1.2-2.2) Lipase (73-393) U/L Urine Color (YELLOW) Urine Appearance (CLEAR) Urine pH (5.0-8.0) Ur Specific [place] (1.008-1.030) Urine Protein (NEGATIVE) mg/dL Urine Glucose (UA) (NEGATIVE) mg/dL Urine Ketones (NEGATIVE) mg/dL Urine Occult Blood (NEGATIVE) Urine Nitrite (NEGATIVE) Urine Bilirubin (NEGATIVE) Urine Urobilinogen (0.2-1.0) EU/dL Ur Leukocyte Esterase (NEGATIVE) Urine RBC (0-5) Urine WBC (0-5) Ur Epithelial Cells Amorphous Sediment Urine Bacteria Urine Mucus Influenza Type A RNA Negative (NEGATIVE) RSV RNA (INAAT) Negative (NEGATIVE) Influenza Type B RNA Negative (NEGATIVE) SARS-CoV-2 RNA (MINDY) Negative (NEGATIVE) 03/09/21 03/09/21 03/09/21 Range/Units 22:16 23:06 23:58 WBC (4.5-11.0) K/uL RBC (4.30-5.90) M/uL Hgb (12.0-15.0) g/dL Hct (40.0-54.0) % MCV (80-98) fL MCH (27-31) pg MCHC (32-36) % Plt Count (150-400) K/uL Neut % (Auto) (36-66) % Lymph % (Auto) (24-44) % [place] % (Auto) (2-6) % Eos % (Auto) (2-4) % Baso % (Auto) (0-1) % Sodium 134 L (140-148) mmol/L Potassium 3.8 (3.6-5.2) mmol/L Chloride 99 L (100-108) mmol/L Carbon Dioxide 25 (21-32) mmol/L Anion Gap 13.8 (5.0-14.0) mmol/L BUN 17 (7-18) mg/dL Creatinine 1.0 (0.8-1.3) mg/dL Est Cr Clr Drug Dosing 66.10 mL/min Estimated GFR (MDRD) > 60 (>60) Glucose 250 H (74-106) mg/dL POC Glucose 191 H 243 H (74-106) mg/dL Lactic Acid (0.4-2.0) mmol/L Calcium 8.8 (8.5-10.1) mg/dL Phosphorus 3.4 (2.5-4.9) mg/dL Magnesium 1.7 L (1.8-2.4) mg/dL Ferritin (8-388) ng/ml Total Bilirubin (0.2-1.0) mg/dL AST (15-37) U/L ALT (12-78) U/L Alkaline Phosphatase (46-116) U/L Total Protein (6.4-8.2) g/dL Albumin (3.4-5.0) g/dL Globulin (2.3-3.5) g/dL Albumin/Globulin Ratio (1.2-2.2) Lipase (73-393) U/L Urine Color (YELLOW) Urine Appearance (CLEAR) Urine pH (5.0-8.0) Ur Specific [place] (1.008-1.030) Urine Protein (NEGATIVE) mg/dL Urine Glucose (UA) (NEGATIVE) mg/dL Urine Ketones (NEGATIVE) mg/dL Urine Occult Blood (NEGATIVE) Urine Nitrite (NEGATIVE) Urine Bilirubin (NEGATIVE) Urine Urobilinogen (0.2-1.0) EU/dL Ur Leukocyte Esterase (NEGATIVE) Urine RBC (0-5) Urine WBC (0-5) Ur Epithelial Cells Amorphous Sediment Urine Bacteria Urine Mucus Influenza Type A RNA (NEGATIVE) RSV RNA (INAAT) (NEGATIVE) Influenza Type B RNA (NEGATIVE) SARS-CoV-2 RNA (MINDY) (NEGATIVE) 03/09/21 03/10/21 03/10/21 Range/Units 23:59 00:01 01:08 WBC (4.5-11.0) K/uL RBC (4.30-5.90) M/uL Hgb (12.0-15.0) g/dL Hct (40.0-54.0) % MCV (80-98) fL MCH (27-31) pg MCHC (32-36) % Plt Count (150-400) K/uL Neut % (Auto) (36-66) % Lymph % (Auto) (24-44) % [place] % (Auto) (2-6) % Eos % (Auto) (2-4) % Baso % (Auto) (0-1) % Sodium (140-148) mmol/L Potassium 4.5 (3.6-5.2) mmol/L Chloride (100-108) mmol/L Carbon Dioxide (21-32) mmol/L Anion Gap (5.0-14.0) mmol/L BUN (7-18) mg/dL Creatinine (0.8-1.3) mg/dL Est Cr Clr Drug Dosing mL/min Estimated GFR (MDRD) (>60) Glucose (74-106) mg/dL POC Glucose 258 H 220 H (74-106) mg/dL Lactic Acid (0.4-2.0) mmol/L Calcium (8.5-10.1) mg/dL Phosphorus (2.5-4.9) mg/dL Magnesium (1.8-2.4) mg/dL Ferritin (8-388) ng/ml Total Bilirubin (0.2-1.0) mg/dL AST (15-37) U/L ALT (12-78) U/L Alkaline Phosphatase (46-116) U/L Total Protein (6.4-8.2) g/dL Albumin (3.4-5.0) g/dL Globulin (2.3-3.5) g/dL Albumin/Globulin Ratio (1.2-2.2) Lipase (73-393) U/L Urine Color (YELLOW) Urine Appearance (CLEAR) Urine pH (5.0-8.0) Ur Specific [place] (1.008-1.030) Urine Protein (NEGATIVE) mg/dL Urine Glucose (UA) (NEGATIVE) mg/dL Urine Ketones (NEGATIVE) mg/dL Urine Occult Blood (NEGATIVE) Urine Nitrite (NEGATIVE) Urine Bilirubin (NEGATIVE) Urine Urobilinogen (0.2-1.0) EU/dL Ur Leukocyte Esterase (NEGATIVE) Urine RBC (0-5) Urine WBC (0-5) Ur Epithelial Cells Amorphous Sediment Urine Bacteria Urine Mucus Influenza Type A RNA (NEGATIVE) RSV RNA (INAAT) (NEGATIVE) Influenza Type B RNA (NEGATIVE) SARS-CoV-2 RNA (MINDY) (NEGATIVE) 03/10/21 03/10/21 03/10/21 Range/Units 02:10 02:13 03:13 WBC (4.5-11.0) K/uL RBC (4.30-5.90) M/uL Hgb (12.0-15.0) g/dL Hct (40.0-54.0) % MCV (80-98) fL MCH (27-31) pg MCHC (32-36) % Plt Count (150-400) K/uL Neut % (Auto) (36-66) % Lymph % (Auto) (24-44) % [place] % (Auto) (2-6) % Eos % (Auto) (2-4) % Baso % (Auto) (0-1) % Sodium 137 L (140-148) mmol/L Potassium 3.6 (3.6-5.2) mmol/L Chloride 101 (100-108) mmol/L Carbon Dioxide 27 (21-32) mmol/L Anion Gap 12.6 (5.0-14.0) mmol/L BUN 13 (7-18) mg/dL Creatinine 0.9 (0.8-1.3) mg/dL Est Cr Clr Drug Dosing 73.44 mL/min Estimated GFR (MDRD) > 60 (>60) Glucose 157 H (74-106) mg/dL POC Glucose 151 H 141 H (74-106) mg/dL Lactic Acid (0.4-2.0) mmol/L Calcium 8.2 L (8.5-10.1) mg/dL Phosphorus (2.5-4.9) mg/dL Magnesium (1.8-2.4) mg/dL Ferritin (8-388) ng/ml Total Bilirubin (0.2-1.0) mg/dL AST (15-37) U/L ALT (12-78) U/L Alkaline Phosphatase (46-116) U/L Total Protein (6.4-8.2) g/dL Albumin (3.4-5.0) g/dL Globulin (2.3-3.5) g/dL Albumin/Globulin Ratio (1.2-2.2) Lipase (73-393) U/L Urine Color (YELLOW) Urine Appearance (CLEAR) Urine pH (5.0-8.0) Ur Specific [place] (1.008-1.030) Urine Protein (NEGATIVE) mg/dL Urine Glucose (UA) (NEGATIVE) mg/dL Urine Ketones (NEGATIVE) mg/dL Urine Occult Blood (NEGATIVE) Urine Nitrite (NEGATIVE) Urine Bilirubin (NEGATIVE) Urine Urobilinogen (0.2-1.0) EU/dL Ur Leukocyte Esterase (NEGATIVE) Urine RBC (0-5) Urine WBC (0-5) Ur Epithelial Cells Amorphous Sediment Urine Bacteria Urine Mucus Influenza Type A RNA (NEGATIVE) RSV RNA (INAAT) (NEGATIVE) Influenza Type B RNA (NEGATIVE) SARS-CoV-2 RNA (MINDY) (NEGATIVE) 03/10/21 03/10/21 03/10/21 Range/Units 04:00 04:00 04:00 WBC 9.6 (4.5-11.0) K/uL RBC 4.53 (4.30-5.90) M/uL Hgb 15.4 H (12.0-15.0) g/dL Hct 42.3 (40.0-54.0) % MCV 93 (80-98) fL MCH 34 H (27-31) pg MCHC 36 (32-36) % Plt Count 112 L (150-400) K/uL Neut % (Auto) 55.9 (36-66) % Lymph % (Auto) 28.2 (24-44) % [place] % (Auto) 13.2 H (2-6) % Eos % (Auto) 2.5 (2-4) % Baso % (Auto) 0.2 (0-1) % Sodium (140-148) mmol/L Potassium 3.6 (3.6-5.2) mmol/L Chloride (100-108) mmol/L Carbon Dioxide (21-32) mmol/L Anion Gap (5.0-14.0) mmol/L BUN (7-18) mg/dL Creatinine (0.8-1.3) mg/dL Est Cr Clr Drug Dosing mL/min Estimated GFR (MDRD) (>60) Glucose (74-106) mg/dL POC Glucose (74-106) mg/dL Lactic Acid (0.4-2.0) mmol/L Calcium (8.5-10.1) mg/dL Phosphorus 3.6 (2.5-4.9) mg/dL Magnesium 1.7 L (1.8-2.4) mg/dL Ferritin 317 (8-388) ng/ml Total Bilirubin (0.2-1.0) mg/dL AST (15-37) U/L ALT (12-78) U/L Alkaline Phosphatase (46-116) U/L Total Protein (6.4-8.2) g/dL Albumin (3.4-5.0) g/dL Globulin (2.3-3.5) g/dL Albumin/Globulin Ratio (1.2-2.2) Lipase (73-393) U/L Urine Color (YELLOW) Urine Appearance (CLEAR) Urine pH (5.0-8.0) Ur Specific [place] (1.008-1.030) Urine Protein (NEGATIVE) mg/dL Urine Glucose (UA) (NEGATIVE) mg/dL Urine Ketones (NEGATIVE) mg/dL Urine Occult Blood (NEGATIVE) Urine Nitrite (NEGATIVE) Urine Bilirubin (NEGATIVE) Urine Urobilinogen (0.2-1.0) EU/dL Ur Leukocyte Esterase (NEGATIVE) Urine RBC (0-5) Urine WBC (0-5) Ur Epithelial Cells Amorphous Sediment Urine Bacteria Urine Mucus Influenza Type A RNA (NEGATIVE) RSV RNA (INAAT) (NEGATIVE) Influenza Type B RNA (NEGATIVE) SARS-CoV-2 RNA (MINDY) (NEGATIVE) 03/10/21 03/10/21 03/10/21 Range/Units 04:06 05:01 06:00 WBC (4.5-11.0) K/uL RBC (4.30-5.90) M/uL Hgb (12.0-15.0) g/dL Hct (40.0-54.0) % MCV (80-98) fL MCH (27-31) pg MCHC (32-36) % Plt Count (150-400) K/uL Neut % (Auto) (36-66) % Lymph % (Auto) (24-44) % [place] % (Auto) (2-6) % Eos % (Auto) (2-4) % Baso % (Auto) (0-1) % Sodium 133 L (140-148) mmol/L Potassium 4.3 (3.6-5.2) mmol/L Chloride 101 (100-108) mmol/L Carbon Dioxide 26 (21-32) mmol/L Anion Gap 10.3 (5.0-14.0) mmol/L BUN 13 (7-18) mg/dL Creatinine 0.9 (0.8-1.3) mg/dL Est Cr Clr Drug Dosing 73.44 mL/min Estimated GFR (MDRD) > 60 (>60) Glucose 283 H (74-106) mg/dL POC Glucose 164 H 177 H (74-106) mg/dL Lactic Acid (0.4-2.0) mmol/L Calcium 8.2 L (8.5-10.1) mg/dL Phosphorus (2.5-4.9) mg/dL Magnesium (1.8-2.4) mg/dL Ferritin (8-388) ng/ml Total Bilirubin (0.2-1.0) mg/dL AST (15-37) U/L ALT (12-78) U/L Alkaline Phosphatase (46-116) U/L Total Protein (6.4-8.2) g/dL Albumin (3.4-5.0) g/dL Globulin (2.3-3.5) g/dL Albumin/Globulin Ratio (1.2-2.2) Lipase (73-393) U/L Urine Color (YELLOW) Urine Appearance (CLEAR) Urine pH (5.0-8.0) Ur Specific [place] (1.008-1.030) Urine Protein (NEGATIVE) mg/dL Urine Glucose (UA) (NEGATIVE) mg/dL Urine Ketones (NEGATIVE) mg/dL Urine Occult Blood (NEGATIVE) Urine Nitrite (NEGATIVE) Urine Bilirubin (NEGATIVE) Urine Urobilinogen (0.2-1.0) EU/dL Ur Leukocyte Esterase (NEGATIVE) Urine RBC (0-5) Urine WBC (0-5) Ur Epithelial Cells Amorphous Sediment Urine Bacteria Urine Mucus Influenza Type A RNA (NEGATIVE) RSV RNA (INAAT) (NEGATIVE) Influenza Type B RNA (NEGATIVE) SARS-CoV-2 RNA (MINDY) (NEGATIVE) 03/10/21 03/10/21 03/10/21 Range/Units 06:02 07:11 07:56 WBC (4.5-11.0) K/uL RBC (4.30-5.90) M/uL Hgb (12.0-15.0) g/dL Hct (40.0-54.0) % MCV (80-98) fL MCH (27-31) pg MCHC (32-36) % Plt Count (150-400) K/uL Neut % (Auto) (36-66) % Lymph % (Auto) (24-44) % [place] % (Auto) (2-6) % Eos % (Auto) (2-4) % Baso % (Auto) (0-1) % Sodium (140-148) mmol/L Potassium 3.9 (3.6-5.2) mmol/L Chloride (100-108) mmol/L Carbon Dioxide (21-32) mmol/L Anion Gap (5.0-14.0) mmol/L BUN (7-18) mg/dL Creatinine (0.8-1.3) mg/dL Est Cr Clr Drug Dosing mL/min Estimated GFR (MDRD) (>60) Glucose (74-106) mg/dL POC Glucose 248 H 323 H (74-106) mg/dL Lactic Acid (0.4-2.0) mmol/L Calcium (8.5-10.1) mg/dL Phosphorus (2.5-4.9) mg/dL Magnesium (1.8-2.4) mg/dL Ferritin (8-388) ng/ml Total Bilirubin (0.2-1.0) mg/dL AST (15-37) U/L ALT (12-78) U/L Alkaline Phosphatase (46-116) U/L Total Protein (6.4-8.2) g/dL Albumin (3.4-5.0) g/dL Globulin (2.3-3.5) g/dL Albumin/Globulin Ratio (1.2-2.2) Lipase (73-393) U/L Urine Color (YELLOW) Urine Appearance (CLEAR) Urine pH (5.0-8.0) Ur Specific [place] (1.008-1.030) Urine Protein (NEGATIVE) mg/dL Urine Glucose (UA) (NEGATIVE) mg/dL Urine Ketones (NEGATIVE) mg/dL Urine Occult Blood (NEGATIVE) Urine Nitrite (NEGATIVE) Urine Bilirubin (NEGATIVE) Urine Urobilinogen (0.2-1.0) EU/dL Ur Leukocyte Esterase (NEGATIVE) Urine RBC (0-5) Urine WBC (0-5) Ur Epithelial Cells Amorphous Sediment Urine Bacteria Urine Mucus Influenza Type A RNA (NEGATIVE) RSV RNA (INAAT) (NEGATIVE) Influenza Type B RNA (NEGATIVE) SARS-CoV-2 RNA (MINDY) (NEGATIVE) 03/10/21 03/10/21 03/10/21 Range/Units 08:03 08:57 09:45 WBC (4.5-11.0) K/uL RBC (4.30-5.90) M/uL Hgb (12.0-15.0) g/dL Hct (40.0-54.0) % MCV (80-98) fL MCH (27-31) pg MCHC (32-36) % Plt Count (150-400) K/uL Neut % (Auto) (36-66) % Lymph % (Auto) (24-44) % [place] % (Auto) (2-6) % Eos % (Auto) (2-4) % Baso % (Auto) (0-1) % Sodium 132 L (140-148) mmol/L Potassium 4.3 (3.6-5.2) mmol/L Chloride 103 (100-108) mmol/L Carbon Dioxide 23 (21-32) mmol/L Anion Gap 10.3 (5.0-14.0) mmol/L BUN 13 (7-18) mg/dL Creatinine 0.8 (0.8-1.3) mg/dL Est Cr Clr Drug Dosing 82.63 mL/min Estimated GFR (MDRD) > 60 (>60) Glucose 170 H (74-106) mg/dL POC Glucose 281 H 217 H (74-106) mg/dL Lactic Acid (0.4-2.0) mmol/L Calcium 7.9 L (8.5-10.1) mg/dL Phosphorus 2.8 (2.5-4.9) mg/dL Magnesium 1.9 (1.8-2.4) mg/dL Ferritin (8-388) ng/ml Total Bilirubin (0.2-1.0) mg/dL AST (15-37) U/L ALT (12-78) U/L Alkaline Phosphatase (46-116) U/L Total Protein (6.4-8.2) g/dL Albumin (3.4-5.0) g/dL Globulin (2.3-3.5) g/dL Albumin/Globulin Ratio (1.2-2.2) Lipase (73-393) U/L Urine Color (YELLOW) Urine Appearance (CLEAR) Urine pH (5.0-8.0) Ur Specific [place] (1.008-1.030) Urine Protein (NEGATIVE) mg/dL Urine Glucose (UA) (NEGATIVE) mg/dL Urine Ketones (NEGATIVE) mg/dL Urine Occult Blood (NEGATIVE) Urine Nitrite (NEGATIVE) Urine Bilirubin (NEGATIVE) Urine Urobilinogen (0.2-1.0) EU/dL Ur Leukocyte Esterase (NEGATIVE) Urine RBC (0-5) Urine WBC (0-5) Ur Epithelial Cells Amorphous Sediment Urine Bacteria Urine Mucus Influenza Type A RNA (NEGATIVE) RSV RNA (INAAT) (NEGATIVE) Influenza Type B RNA (NEGATIVE) SARS-CoV-2 RNA (MINDY) (NEGATIVE) 03/10/21 Range/Units 10:38 WBC (4.5-11.0) K/uL RBC (4.30-5.90) M/uL Hgb (12.0-15.0) g/dL Hct (40.0-54.0) % MCV (80-98) fL MCH (27-31) pg MCHC (32-36) % Plt Count (150-400) K/uL Neut % (Auto) (36-66) % Lymph % (Auto) (24-44) % [place] % (Auto) (2-6) % Eos % (Auto) (2-4) % Baso % (Auto) (0-1) % Sodium (140-148) mmol/L Potassium (3.6-5.2) mmol/L Chloride (100-108) mmol/L Carbon Dioxide (21-32) mmol/L Anion Gap (5.0-14.0) mmol/L BUN (7-18) mg/dL Creatinine (0.8-1.3) mg/dL Est Cr Clr Drug Dosing mL/min Estimated GFR (MDRD) (>60) Glucose (74-106) mg/dL POC Glucose 130 H (74-106) mg/dL Lactic Acid (0.4-2.0) mmol/L Calcium (8.5-10.1) mg/dL Phosphorus (2.5-4.9) mg/dL Magnesium (1.8-2.4) mg/dL Ferritin (8-388) ng/ml Total Bilirubin (0.2-1.0) mg/dL AST (15-37) U/L ALT (12-78) U/L Alkaline Phosphatase (46-116) U/L Total Protein (6.4-8.2) g/dL Albumin (3.4-5.0) g/dL Globulin (2.3-3.5) g/dL Albumin/Globulin Ratio (1.2-2.2) Lipase (73-393) U/L Urine Color (YELLOW) Urine Appearance (CLEAR) Urine pH (5.0-8.0) Ur Specific [place] (1.008-1.030) Urine Protein (NEGATIVE) mg/dL Urine Glucose (UA) (NEGATIVE) mg/dL Urine Ketones (NEGATIVE) mg/dL Urine Occult Blood (NEGATIVE) Urine Nitrite (NEGATIVE) Urine Bilirubin (NEGATIVE) Urine Urobilinogen (0.2-1.0) EU/dL Ur Leukocyte Esterase (NEGATIVE) Urine RBC (0-5) Urine WBC (0-5) Ur Epithelial Cells Amorphous Sediment Urine Bacteria Urine Mucus Influenza Type A RNA (NEGATIVE) RSV RNA (INAAT) (NEGATIVE) Influenza Type B RNA (NEGATIVE) SARS-CoV-2 RNA (MINDY) (NEGATIVE) Med Orders - Current: Current Medications Dextrose/Water (50% Dextrose In Water 50 Ml Syringe) 50 ml IVPUSH ONETIME PRN PRN Reason: Blood Glucose Enoxaparin Sodium (Enoxaparin 40 Mg/0.4 Ml Syringe) 40 mg SUBCUT BEDTIME LAUREN Glucagon (Glucagon,Human Recombinant 1 Mg Vial) 1 mg IM ASDIRECTED PRN PRN Reason: Hypoglycemia Insulin Glargine (Insulin Glargine,Human Rec. Analog 100 Units/Ml 3 Ml Pen) 45 units SUBCUT BEDTIME LAUREN Insulin Human Lispro (Insulin Lispro 100 Unit/Ml 3 Ml Kwikpen) 0 unit SUBCUT Q IDACANDBED [facility]; Protocol Last Admin: 03/10/21 10:41 Dose: Not Given Documented by: Ondansetron HCl (Ondansetron 4 Mg/2 Ml Sdv) 4 mg IV Q4H PRN PRN Reason: Nausea/Vomiting Oxycodone HCl (Oxycodone 5 Mg Tab) 5 mg PO Q4H PRN PRN Reason: Pain (moderate 4-6) Last Admin: 03/10/21 13:22 Dose: 5 mg Documented by: Pantoprazole Sodium (Pantoprazole 40 Mg Vial) 40 mg IV Q12H LAUREN Last Admin: 03/10/21 13:14 Dose: 40 mg Documented by: Polyethylene Glycol (Polyethylene Glycol 3350 Powder 17 Gm Packet) 17 gm PO DAILY PRN PRN Reason: Constipation Sodium Chloride (Sodium Chloride 0.9% 10 Ml Syringe) 10 ml FLUSH ASDIRECTED PRN PRN Reason: Keep Vein Open Discontinued Medications Enoxaparin Sodium (Enoxaparin 40 Mg/0.4 Ml Syringe) 40 mg SUBCUT DAILY [facility] Last Admin: 03/09/21 23:01 Dose: 40 mg Documented by: Hydromorphone HCl (Hydromorphone 0.5 Mg/0.5 Ml Syringe) 0.5 mg IVPUSH ONETIME ONE Stop: 03/09/21 17:57 Last Admin: 03/09/21 18:26 Dose: 0.5 mg Documented by: Sodium Chloride (Normal Saline) 1,000 mls @ 250 mls/hr [facility] Last Admin: 03/09/21 18:26 Dose: 250 mls/hr Documented by: Insulin Regular in 0.9 % NACL (Myxredlin In Ns 100 Unit/100 Ml) 100 unit in 100 mls @ 7.484 [facility]ls[facility] Last Admin: 03/09/21 20:07 Dose: 0.1 units/kg/hr, 7.484 mls/hr Documented by: Sodium Chloride (Normal Saline) 1,000 mls @ 999 mls/hr IV ONETIME ONE Stop: 03/09/21 20:26 Last Admin: 03/09/21 20:08 Dose: 999 mls/hr Documented by: Sodium Chloride (Normal Saline) 90 mls @ 3.5 mls/sec [facility] Last Admin: 03/09/21 19:53 Dose: 3.5 mls/sec Documented by: Sodium Chloride (Normal Saline) 2,000 mls @ 500 mls/hr IV .CONTINUOUS PRN PRN Reason: Blood Glucose Dextrose/Sodium Chloride (Dextrose 5%-1/2 Ns) 1,000 mls @ 150 mls/hr IV .CONTIN UOUS PRN PRN Reason: Blood Glucose Stop: 03/10/21 10:00 Last Admin: 03/10/21 08:59 Dose: 150 mls/hr Documented by: Potassium Chloride 20 meq/ (Premix) 100 mls @ 50 mls/hr IV ONETIME ONE Stop: 03/09/21 23:44 Last Admin: 03/09/21 23:28 Dose: Not Given Documented by: Potassium Chloride 20 meq/ (Premix) 100 mls @ 50 mls/hr IV Q2H PRN PRN Reason: Hypokalemia Potassium Chloride 20 meq/ (Premix) 100 mls @ 50 mls/hr IV Q2H PRN PRN Reason: Hypokalemia Magnesium Sulfate (Magnesium Sulfate In Water 2 Gm/50 Ml) 50 mls @ 25 mls/hr IV ONETIME PRN PRN Reason: low magnesium Last Admin: 03/10/21 05:52 Dose: 25 mls/hr Documented by: Sodium Phosphate 60 mmole/ (Sodium Chloride) 270 mls @ 62.5 mls/hr IV ONETIME PRN PRN Reason: Low phophorus Insulin Regular in 0.9 % NACL (Myxredlin In Ns 100 Unit/100 Ml) 100 mls @ 7.484 mls/hr IV ASDIRECTED [facility]; Protocol Stop: 03/10/21 10:00 Last Infusion: 03/10/21 10:08 Dose: 0 units/kg/hr, 0 mls/hr Documented by: Sodium Chloride (Normal Saline) 1,000 mls @ 250 mls/hr IV .CONTINUOUS PRN PRN Reason: Blood Glucose Stop: 03/10/21 10:00 Last Admin: 03/10/21 07:32 Dose: 250 mls/hr Documented by: Insulin Glargine (Insulin Glargine,Human Rec. Analog 100 Units/Ml 3 Ml Pen) 30 units SUBCUT BEDTIME LAUREN Last Admin: 03/09/21 23:10 Dose: 30 units Documented by: Insulin Glargine (Insulin Glargine,Human Rec. Analog 100 Units/Ml 3 Ml Pen) 15 units SUBCUT NOW STA Stop: 03/10/21 10:04 Last Admin: 03/10/21 10:16 Dose: 15 units Documented by: Insulin Human Regular (Insulin Regular, Human 100 Units/Ml 3 Ml Vial) 10 unit IVPUSH ONETIME ONE Stop: 03/09/21 19:26 Last Admin: 03/09/21 19:44 Dose: 10 unit Documented by: Iopamidol (Iopamidol 612 Mg/Ml 150 Ml Bottle) 113 ml IV . DIRECTED [facility] Last Admin: 03/09/21 19:53 Dose: 113 ml Documented by: Pantoprazole Sodium (Pantoprazole 40 Mg Vial) 40 mg IV Q12H [facility] Last Admin: 03/10/21 02:21 Dose: 40 mg Documented by: Potassium Chloride (Potassium Chloride 10% 20 Meq/15 Ml Soln 15 Ml Ud Cup) 20 meq PO NOW PRN PRN Reason: Hypokalemia Last Admin: 03/09/21 23:18 Dose: 20 meq Documented by: Potassium Chloride (Potassium Chloride 10% 20 Meq/15 Ml Soln 15 Ml Ud Cup) 40 meq PO NOW PRN PRN Reason: Hypokalemia Potassium Chloride (Potassium Chloride 10% 20 Meq/15 Ml Soln 15 Ml Ud Cup) 40 meq PO Q2H PRN PRN Reason: Hypokalemia - Exam Quality Assessment: DVT Prophylaxis General: Alert, Oriented, Cooperative, Mild Distress Lungs: Clear to Auscultation, Normal Respiratory Effort, Decreased Breath Sounds Cardiovascular: Regular Rate, Regular Rhythm, No Murmurs GI/Abdominal Exam: Soft, No Organomegaly, Tender. No: Distended, Guarding, Rigid, Rebound Extremities: Non-Tender, No Pedal Edema - Patient Data Lab Results Last 24 hrs: Laboratory Results - last 24 hr 03/09/21 03/09/21 03/09/21 Range/Units 17:53 18:15 18:15 WBC 9.8 (4.5-11.0) K/uL RBC 4.80 (4.30-5.90) M/uL Hgb 15.6 H (12.0-15.0) g/dL Hct 44.9 (40.0-54.0) % MCV 94 (80-98) fL MCH 33 H (27-31) pg MCHC 35 (32-36) % Plt Count 120 L (150-400) K/uL Neut % (Auto) 68.0 H (36-66) % Lymph % (Auto) 20.2 L (24-44) % [place] % (Auto) 10.7 H (2-6) % Eos % (Auto) 1.0 L (2-4) % Baso % (Auto) 0.1 (0-1) % Sodium 125 L (140-148) mmol/L Potassium 5.1 (3.6-5.2) mmol/L Chloride 91 L (100-108) mmol/L Carbon Dioxide 25 (21-32) mmol/L Anion Gap 14.1 H (5.0-14.0) mmol/L BUN 20 H (7-18) mg/dL Creatinine 1.4 H (0.8-1.3) mg/dL Est Cr Clr Drug Dosing 47.21 mL/min Estimated GFR (MDRD) 50 L (>60) Glucose 812 H* (74-106) mg/dL POC Glucose (74-106) mg/dL Lactic Acid (0.4-2.0) mmol/L Calcium 8.6 (8.5-10.1) mg/dL Phosphorus (2.5-4.9) mg/dL Magnesium (1.8-2.4) mg/dL Ferritin (8-388) ng/ml Total Bilirubin 0.6 (0.2-1.0) mg/dL AST 73 H (15-37) U/L ALT 109 H (12-78) U/L Alkaline Phosphatase 276 H (46-116) U/L Total Protein 7.6 (6.4-8.2) g/dL Albumin 2.6 L (3.4-5.0) g/dL Globulin 5.0 H (2.3-3.5) g/dL Albumin/Globulin Ratio 0.5 L (1.2-2.2) Lipase 94 (73-393) U/L Urine Color Yellow (YELLOW) Urine Appearance Clear (CLEAR) Urine pH 6.5 (5.0-8.0) Ur Specific [place] 1.010 (1.008-1.030) Urine Protein Negative (NEGATIVE) mg/dL Urine Glucose (UA) 500 H (NEGATIVE) mg/dL Urine Ketones Negative (NEGATIVE) mg/dL Urine Occult Blood Trace-intact H (NEGATIVE) Urine Nitrite Negative (NEGATIVE) Urine Bilirubin Negative (NEGATIVE) Urine Urobilinogen 0.2 (0.2-1.0) EU/dL Ur Leukocyte Esterase Negative (NEGATIVE) Urine RBC 0-5 (0-5) Urine WBC Not seen (0-5) Ur Epithelial Cells Not seen Amorphous Sediment Not seen Urine Bacteria Not seen Urine Mucus Not seen Influenza Type A RNA (NEGATIVE) RSV RNA (INAAT) (NEGATIVE) Influenza Type B RNA (NEGATIVE) SARS-CoV-2 RNA (MINDY) (NEGATIVE) 03/09/21 03/09/21 03/09/21 Range/Units 18:15 18:28 22:13 WBC (4.5-11.0) K/uL RBC (4.30-5.90) M/uL Hgb (12.0-15.0) g/dL Hct (40.0-54.0) % MCV (80-98) fL MCH (27-31) pg MCHC (32-36) % Plt Count (150-400) K/uL Neut % (Auto) (36-66) % Lymph % (Auto) (24-44) % [place] % (Auto) (2-6) % Eos % (Auto) (2-4) % Baso % (Auto) (0-1) % Sodium (140-148) mmol/L Potassium (3.6-5.2) mmol/L Chloride (100-108) mmol/L Carbon Dioxide (21-32) mmol/L Anion Gap (5.0-14.0) mmol/L BUN (7-18) mg/dL Creatinine (0.8-1.3) mg/dL Est Cr Clr Drug Dosing mL/min Estimated GFR (MDRD) (>60) Glucose (74-106) mg/dL POC Glucose 237 H (74-106) mg/dL Lactic Acid 4.1 H (0.4-2.0) mmol/L Calcium (8.5-10.1) mg/dL Phosphorus (2.5-4.9) mg/dL Magnesium (1.8-2.4) mg/dL Ferritin (8-388) ng/ml Total Bilirubin (0.2-1.0) mg/dL AST (15-37) U/L ALT (12-78) U/L Alkaline Phosphatase (46-116) U/L Total Protein (6.4-8.2) g/dL Albumin (3.4-5.0) g/dL Globulin (2.3-3.5) g/dL Albumin/Globulin Ratio (1.2-2.2) Lipase (73-393) U/L Urine Color (YELLOW) Urine Appearance (CLEAR) Urine pH (5.0-8.0) Ur Specific [place] (1.008-1.030) Urine Protein (NEGATIVE) mg/dL Urine Glucose (UA) (NEGATIVE) mg/dL Urine Ketones (NEGATIVE) mg/dL Urine Occult Blood (NEGATIVE) Urine Nitrite (NEGATIVE) Urine Bilirubin (NEGATIVE) Urine Urobilinogen (0.2-1.0) EU/dL Ur Leukocyte Esterase (NEGATIVE) Urine RBC (0-5) Urine WBC (0-5) Ur Epithelial Cells Amorphous Sediment Urine Bacteria Urine Mucus Influenza Type A RNA Negative (NEGATIVE) RSV RNA (INAAT) Negative (NEGATIVE) Influenza Type B RNA Negative (NEGATIVE) SARS-CoV-2 RNA (MINDY) Negative (NEGATIVE) 03/09/21 03/09/21 03/09/21 Range/Units 22:16 23:06 23:58 WBC (4.5-11.0) K/uL RBC (4.30-5.90) M/uL Hgb (12.0-15.0) g/dL Hct (40.0-54.0) % MCV (80-98) fL MCH (27-31) pg MCHC (32-36) % Plt Count (150-400) K/uL Neut % (Auto) (36-66) % Lymph % (Auto) (24-44) % [place] % (Auto) (2-6) % Eos % (Auto) (2-4) % Baso % (Auto) (0-1) % Sodium 134 L (140-148) mmol/L Potassium 3.8 (3.6-5.2) mmol/L Chloride 99 L (100-108) mmol/L Carbon Dioxide 25 (21-32) mmol/L Anion Gap 13.8 (5.0-14.0) mmol/L BUN 17 (7-18) mg/dL Creatinine 1.0 (0.8-1.3) mg/dL Est Cr Clr Drug Dosing 66.10 mL/min Estimated GFR (MDRD) > 60 (>60) Glucose 250 H (74-106) mg/dL POC Glucose 191 H 243 H (74-106) mg/dL Lactic Acid (0.4-2.0) mmol/L Calcium 8.8 (8.5-10.1) mg/dL Phosphorus 3.4 (2.5-4.9) mg/dL Magnesium 1.7 L (1.8-2.4) mg/dL Ferritin (8-388) ng/ml Total Bilirubin (0.2-1.0) mg/dL AST (15-37) U/L ALT (12-78) U/L Alkaline Phosphatase (46-116) U/L Total Protein (6.4-8.2) g/dL Albumin (3.4-5.0) g/dL Globulin (2.3-3.5) g/dL Albumin/Globulin Ratio (1.2-2.2) Lipase (73-393) U/L Urine Color (YELLOW) Urine Appearance (CLEAR) Urine pH (5.0-8.0) Ur Specific [place] (1.008-1.030) Urine Protein (NEGATIVE) mg/dL Urine Glucose (UA) (NEGATIVE) mg/dL Urine Ketones (NEGATIVE) mg/dL Urine Occult Blood (NEGATIVE) Urine Nitrite (NEGATIVE) Urine Bilirubin (NEGATIVE) Urine Urobilinogen (0.2-1.0) EU/dL Ur Leukocyte Esterase (NEGATIVE) Urine RBC (0-5) Urine WBC (0-5) Ur Epithelial Cells Amorphous Sediment Urine Bacteria Urine Mucus Influenza Type A RNA (NEGATIVE) RSV RNA (INAAT) (NEGATIVE) Influenza Type B RNA (NEGATIVE) SARS-CoV-2 RNA (MINDY) (NEGATIVE) 03/09/21 03/10/21 03/10/21 Range/Units 23:59 00:01 01:08 WBC (4.5-11.0) K/uL RBC (4.30-5.90) M/uL Hgb (12.0-15.0) g/dL Hct (40.0-54.0) % MCV (80-98) fL MCH (27-31) pg MCHC (32-36) % Plt Count (150-400) K/uL Neut % (Auto) (36-66) % Lymph % (Auto) (24-44) % [place] % (Auto) (2-6) % Eos % (Auto) (2-4) % Baso % (Auto) (0-1) % Sodium (140-148) mmol/L Potassium 4.5 (3.6-5.2) mmol/L Chloride (100-108) mmol/L Carbon Dioxide (21-32) mmol/L Anion Gap (5.0-14.0) mmol/L BUN (7-18) mg/dL Creatinine (0.8-1.3) mg/dL Est Cr Clr Drug Dosing mL/min Estimated GFR (MDRD) (>60) Glucose (74-106) mg/dL POC Glucose 258 H 220 H (74-106) mg/dL Lactic Acid (0.4-2.0) mmol/L Calcium (8.5-10.1) mg/dL Phosphorus (2.5-4.9) mg/dL Magnesium (1.8-2.4) mg/dL Ferritin (8-388) ng/ml Total Bilirubin (0.2-1.0) mg/dL AST (15-37) U/L ALT (12-78) U/L Alkaline Phosphatase (46-116) U/L Total Protein (6.4-8.2) g/dL Albumin (3.4-5.0) g/dL Globulin (2.3-3.5) g/dL Albumin/Globulin Ratio (1.2-2.2) Lipase (73-393) U/L Urine Color (YELLOW) Urine Appearance (CLEAR) Urine pH (5.0-8.0) Ur Specific [place] (1.008-1.030) Urine Protein (NEGATIVE) mg/dL Urine Glucose (UA) (NEGATIVE) mg/dL Urine Ketones (NEGATIVE) mg/dL Urine Occult Blood (NEGATIVE) Urine Nitrite (NEGATIVE) Urine Bilirubin (NEGATIVE) Urine Urobilinogen (0.2-1.0) EU/dL Ur Leukocyte Esterase (NEGATIVE) Urine RBC (0-5) Urine WBC (0-5) Ur Epithelial Cells Amorphous Sediment Urine Bacteria Urine Mucus Influenza Type A RNA (NEGATIVE) RSV RNA (INAAT) (NEGATIVE) Influenza Type B RNA (NEGATIVE) SARS-CoV-2 RNA (MINDY) (NEGATIVE) 03/10/21 03/10/21 03/10/21 Range/Units 02:10 02:13 03:13 WBC (4.5-11.0) K/uL RBC (4.30-5.90) M/uL Hgb (12.0-15.0) g/dL Hct (40.0-54.0) % MCV (80-98) fL MCH (27-31) pg MCHC (32-36) % Plt Count (150-400) K/uL Neut % (Auto) (36-66) % Lymph % (Auto) (24-44) % [place] % (Auto) (2-6) % Eos % (Auto) (2-4) % Baso % (Auto) (0-1) % Sodium 137 L (140-148) mmol/L Potassium 3.6 (3.6-5.2) mmol/L Chloride 101 (100-108) mmol/L Carbon Dioxide 27 (21-32) mmol/L Anion Gap 12.6 (5.0-14.0) mmol/L BUN 13 (7-18) mg/dL Creatinine 0.9 (0.8-1.3) mg/dL Est Cr Clr Drug Dosing 73.44 mL/min Estimated GFR (MDRD) > 60 (>60) Glucose 157 H (74-106) mg/dL POC Glucose 151 H 141 H (74-106) mg/dL Lactic Acid (0.4-2.0) mmol/L Calcium 8.2 L (8.5-10.1) mg/dL Phosphorus (2.5-4.9) mg/dL Magnesium (1.8-2.4) mg/dL Ferritin (8-388) ng/ml Total Bilirubin (0.2-1.0) mg/dL AST (15-37) U/L ALT (12-78) U/L Alkaline Phosphatase (46-116) U/L Total Protein (6.4-8.2) g/dL Albumin (3.4-5.0) g/dL Globulin (2.3-3.5) g/dL Albumin/Globulin Ratio (1.2-2.2) Lipase (73-393) U/L Urine Color (YELLOW) Urine Appearance (CLEAR) Urine pH (5.0-8.0) Ur Specific [place] (1.008-1.030) Urine Protein (NEGATIVE) mg/dL Urine Glucose (UA) (NEGATIVE) mg/dL Urine Ketones (NEGATIVE) mg/dL Urine Occult Blood (NEGATIVE) Urine Nitrite (NEGATIVE) Urine Bilirubin (NEGATIVE) Urine Urobilinogen (0.2-1.0) EU/dL Ur Leukocyte Esterase (NEGATIVE) Urine RBC (0-5) Urine WBC (0-5) Ur Epithelial Cells Amorphous Sediment Urine Bacteria Urine Mucus Influenza Type A RNA (NEGATIVE) RSV RNA (INAAT) (NEGATIVE) Influenza Type B RNA (NEGATIVE) SARS-CoV-2 RNA (MINDY) (NEGATIVE) 03/10/21 03/10/21 03/10/21 Range/Units 04:00 04:00 04:00 WBC 9.6 (4.5-11.0) K/uL RBC 4.53 (4.30-5.90) M/uL Hgb 15.4 H (12.0-15.0) g/dL Hct 42.3 (40.0-54.0) % MCV 93 (80-98) fL MCH 34 H (27-31) pg MCHC 36 (32-36) % Plt Count 112 L (150-400) K/uL Neut % (Auto) 55.9 (36-66) % Lymph % (Auto) 28.2 (24-44) % [place] % (Auto) 13.2 H (2-6) % Eos % (Auto) 2.5 (2-4) % Baso % (Auto) 0.2 (0-1) % Sodium (140-148) mmol/L Potassium 3.6 (3.6-5.2) mmol/L Chloride (100-108) mmol/L Carbon Dioxide (21-32) mmol/L Anion Gap (5.0-14.0) mmol/L BUN (7-18) mg/dL Creatinine (0.8-1.3) mg/dL Est Cr Clr Drug Dosing mL/min Estimated GFR (MDRD) (>60) Glucose (74-106) mg/dL POC Glucose (74-106) mg/dL Lactic Acid (0.4-2.0) mmol/L Calcium (8.5-10.1) mg/dL Phosphorus 3.6 (2.5-4.9) mg/dL Magnesium 1.7 L (1.8-2.4) mg/dL Ferritin 317 (8-388) ng/ml Total Bilirubin (0.2-1.0) mg/dL AST (15-37) U/L ALT (12-78) U/L Alkaline Phosphatase (46-116) U/L Total Protein (6.4-8.2) g/dL Albumin (3.4-5.0) g/dL Globulin (2.3-3.5) g/dL Albumin/Globulin Ratio (1.2-2.2) Lipase (73-393) U/L Urine Color (YELLOW) Urine Appearance (CLEAR) Urine pH (5.0-8.0) Ur Specific [place] (1.008-1.030) Urine Protein (NEGATIVE) mg/dL Urine Glucose (UA) (NEGATIVE) mg/dL Urine Ketones (NEGATIVE) mg/dL Urine Occult Blood (NEGATIVE) Urine Nitrite (NEGATIVE) Urine Bilirubin (NEGATIVE) Urine Urobilinogen (0.2-1.0) EU/dL Ur Leukocyte Esterase (NEGATIVE) Urine RBC (0-5) Urine WBC (0-5) Ur Epithelial Cells Amorphous Sediment Urine Bacteria Urine Mucus Influenza Type A RNA (NEGATIVE) RSV RNA (INAAT) (NEGATIVE) Influenza Type B RNA (NEGATIVE) SARS-CoV-2 RNA (MINDY) (NEGATIVE) 03/10/21 03/10/21 03/10/21 Range/Units 04:06 05:01 06:00 WBC (4.5-11.0) K/uL RBC (4.30-5.90) M/uL Hgb (12.0-15.0) g/dL Hct (40.0-54.0) % MCV (80-98) fL MCH (27-31) pg MCHC (32-36) % Plt Count (150-400) K/uL Neut % (Auto) (36-66) % Lymph % (Auto) (24-44) % [place] % (Auto) (2-6) % Eos % (Auto) (2-4) % Baso % (Auto) (0-1) % Sodium 133 L (140-148) mmol/L Potassium 4.3 (3.6-5.2) mmol/L Chloride 101 (100-108) mmol/L Carbon Dioxide 26 (21-32) mmol/L Anion Gap 10.3 (5.0-14.0) mmol/L BUN 13 (7-18) mg/dL Creatinine 0.9 (0.8-1.3) mg/dL Est Cr Clr Drug Dosing 73.44 mL/min Estimated GFR (MDRD) > 60 (>60) Glucose 283 H (74-106) mg/dL POC Glucose 164 H 177 H (74-106) mg/dL Lactic Acid (0.4-2.0) mmol/L Calcium 8.2 L (8.5-10.1) mg/dL Phosphorus (2.5-4.9) mg/dL Magnesium (1.8-2.4) mg/dL Ferritin (8-388) ng/ml Total Bilirubin (0.2-1.0) mg/dL AST (15-37) U/L ALT (12-78) U/L Alkaline Phosphatase (46-116) U/L Total Protein (6.4-8.2) g/dL Albumin (3.4-5.0) g/dL Globulin (2.3-3.5) g/dL Albumin/Globulin Ratio (1.2-2.2) Lipase (73-393) U/L Urine Color (YELLOW) Urine Appearance (CLEAR) Urine pH (5.0-8.0) Ur Specific [place] (1.008-1.030) Urine Protein (NEGATIVE) mg/dL Urine Glucose (UA) (NEGATIVE) mg/dL Urine Ketones (NEGATIVE) mg/dL Urine Occult Blood (NEGATIVE) Urine Nitrite (NEGATIVE) Urine Bilirubin (NEGATIVE) Urine Urobilinogen (0.2-1.0) EU/dL Ur Leukocyte Esterase (NEGATIVE) Urine RBC (0-5) Urine WBC (0-5) Ur Epithelial Cells Amorphous Sediment Urine Bacteria Urine Mucus Influenza Type A RNA (NEGATIVE) RSV RNA (INAAT) (NEGATIVE) Influenza Type B RNA (NEGATIVE) SARS-CoV-2 RNA (MINDY) (NEGATIVE) 03/10/21 03/10/21 03/10/21 Range/Units 06:02 07:11 07:56 WBC (4.5-11.0) K/uL RBC (4.30-5.90) M/uL Hgb (12.0-15.0) g/dL Hct (40.0-54.0) % MCV (80-98) fL MCH (27-31) pg MCHC (32-36) % Plt Count (150-400) K/uL Neut % (Auto) (36-66) % Lymph % (Auto) (24-44) % [place] % (Auto) (2-6) % Eos % (Auto) (2-4) % Baso % (Auto) (0-1) % Sodium (140-148) mmol/L Potassium 3.9 (3.6-5.2) mmol/L Chloride (100-108) mmol/L Carbon Dioxide (21-32) mmol/L Anion Gap (5.0-14.0) mmol/L BUN (7-18) mg/dL Creatinine (0.8-1.3) mg/dL Est Cr Clr Drug Dosing mL/min Estimated GFR (MDRD) (>60) Glucose (74-106) mg/dL POC Glucose 248 H 323 H (74-106) mg/dL Lactic Acid (0.4-2.0) mmol/L Calcium (8.5-10.1) mg/dL Phosphorus (2.5-4.9) mg/dL Magnesium (1.8-2.4) mg/dL Ferritin (8-388) ng/ml Total Bilirubin (0.2-1.0) mg/dL AST (15-37) U/L ALT (12-78) U/L Alkaline Phosphatase (46-116) U/L Total Protein (6.4-8.2) g/dL Albumin (3.4-5.0) g/dL Globulin (2.3-3.5) g/dL Albumin/Globulin Ratio (1.2-2.2) Lipase (73-393) U/L Urine Color (YELLOW) Urine Appearance (CLEAR) Urine pH (5.0-8.0) Ur Specific [place] (1.008-1.030) Urine Protein (NEGATIVE) mg/dL Urine Glucose (UA) (NEGATIVE) mg/dL Urine Ketones (NEGATIVE) mg/dL Urine Occult Blood (NEGATIVE) Urine Nitrite (NEGATIVE) Urine Bilirubin (NEGATIVE) Urine Urobilinogen (0.2-1.0) EU/dL Ur Leukocyte Esterase (NEGATIVE) Urine RBC (0-5) Urine WBC (0-5) Ur Epithelial Cells Amorphous Sediment Urine Bacteria Urine Mucus Influenza Type A RNA (NEGATIVE) RSV RNA (INAAT) (NEGATIVE) Influenza Type B RNA (NEGATIVE) SARS-CoV-2 RNA (MINDY) (NEGATIVE) 03/10/21 03/10/21 03/10/21 Range/Units 08:03 08:57 09:45 WBC (4.5-11.0) K/uL RBC (4.30-5.90) M/uL Hgb (12.0-15.0) g/dL Hct (40.0-54.0) % MCV (80-98) fL MCH (27-31) pg MCHC (32-36) % Plt Count (150-400) K/uL Neut % (Auto) (36-66) % Lymph % (Auto) (24-44) % [place] % (Auto) (2-6) % Eos % (Auto) (2-4) % Baso % (Auto) (0-1) % Sodium 132 L (140-148) mmol/L Potassium 4.3 (3.6-5.2) mmol/L Chloride 103 (100-108) mmol/L Carbon Dioxide 23 (21-32) mmol/L Anion Gap 10.3 (5.0-14.0) mmol/L BUN 13 (7-18) mg/dL Creatinine 0.8 (0.8-1.3) mg/dL Est Cr Clr Drug Dosing 82.63 mL/min Estimated GFR (MDRD) > 60 (>60) Glucose 170 H (74-106) mg/dL POC Glucose 281 H 217 H (74-106) mg/dL Lactic Acid (0.4-2.0) mmol/L Calcium 7.9 L (8.5-10.1) mg/dL Phosphorus 2.8 (2.5-4.9) mg/dL Magnesium 1.9 (1.8-2.4) mg/dL Ferritin (8-388) ng/ml Total Bilirubin (0.2-1.0) mg/dL AST (15-37) U/L ALT (12-78) U/L Alkaline Phosphatase (46-116) U/L Total Protein (6.4-8.2) g/dL Albumin (3.4-5.0) g/dL Globulin (2.3-3.5) g/dL Albumin/Globulin Ratio (1.2-2.2) Lipase (73-393) U/L Urine Color (YELLOW) Urine Appearance (CLEAR) Urine pH (5.0-8.0) Ur Specific [place] (1.008-1.030) Urine Protein (NEGATIVE) mg/dL Urine Glucose (UA) (NEGATIVE) mg/dL Urine Ketones (NEGATIVE) mg/dL Urine Occult Blood (NEGATIVE) Urine Nitrite (NEGATIVE) Urine Bilirubin (NEGATIVE) Urine Urobilinogen (0.2-1.0) EU/dL Ur Leukocyte Esterase (NEGATIVE) Urine RBC (0-5) Urine WBC (0-5) Ur Epithelial Cells Amorphous Sediment Urine Bacteria Urine Mucus Influenza Type A RNA (NEGATIVE) RSV RNA (INAAT) (NEGATIVE) Influenza Type B RNA (NEGATIVE) SARS-CoV-2 RNA (MINDY) (NEGATIVE) 03/10/21 Range/Units 10:38 WBC (4.5-11.0) K/uL RBC (4.30-5.90) M/uL Hgb (12.0-15.0) g/dL Hct (40.0-54.0) % MCV (80-98) fL MCH (27-31) pg MCHC (32-36) % Plt Count (150-400) K/uL Neut % (Auto) (36-66) % Lymph % (Auto) (24-44) % [place] % (Auto) (2-6) % Eos % (Auto) (2-4) % Baso % (Auto) (0-1) % Sodium (140-148) mmol/L Potassium (3.6-5.2) mmol/L Chloride (100-108) mmol/L Carbon Dioxide (21-32) mmol/L Anion Gap (5.0-14.0) mmol/L BUN (7-18) mg/dL Creatinine (0.8-1.3) mg/dL Est Cr Clr Drug Dosing mL/min Estimated GFR (MDRD) (>60) Glucose (74-106) mg/dL POC Glucose 130 H (74-106) mg/dL Lactic Acid (0.4-2.0) mmol/L Calcium (8.5-10.1) mg/dL Phosphorus (2.5-4.9) mg/dL Magnesium (1.8-2.4) mg/dL Ferritin (8-388) ng/ml Total Bilirubin (0.2-1.0) mg/dL AST (15-37) U/L ALT (12-78) U/L Alkaline Phosphatase (46-116) U/L Total Protein (6.4-8.2) g/dL Albumin (3.4-5.0) g/dL Globulin (2.3-3.5) g/dL Albumin/Globulin Ratio (1.2-2.2) Lipase (73-393) U/L Urine Color (YELLOW) Urine Appearance (CLEAR) Urine pH (5.0-8.0) Ur Specific [place] (1.008-1.030) Urine Protein (NEGATIVE) mg/dL Urine Glucose (UA) (NEGATIVE) mg/dL Urine Ketones (NEGATIVE) mg/dL Urine Occult Blood (NEGATIVE) Urine Nitrite (NEGATIVE) Urine Bilirubin (NEGATIVE) Urine Urobilinogen (0.2-1.0) EU/dL Ur Leukocyte Esterase (NEGATIVE) Urine RBC (0-5) Urine WBC (0-5) Ur Epithelial Cells Amorphous Sediment Urine Bacteria Urine Mucus Influenza Type A RNA (NEGATIVE) RSV RNA (INAAT) (NEGATIVE) Influenza Type B RNA (NEGATIVE) SARS-CoV-2 RNA (MINDY) (NEGATIVE) Result Diagrams: 03/10/21 04:00 03/10/21 09:45 Sepsis Event Note - Evaluation Sepsis Screening Result: No Definite Risk - Focused Exam Vital Signs: Vital Signs Temp Pulse Resp BP Pulse Ox 03/10/21 14:00 97.4 F 81 19 122/68 95 03/10/21 13:00 98 F 80 22 H 127/66 97 03/10/21 12:00 82 18 134/72 92 L 03/10/21 11:00 93 13 153/91 H 03/10/21 10:00 92 14 153/77 H 97 03/10/21 09:00 80 22 H 139/79 97 03/10/21 08:00 97.6 F 82 21 H 138/69 95 03/10/21 07:00 97.6 F 81 24 H 164/81 H 96 03/10/21 06:00 79 16 133/74 94 L 03/10/21 05:00 80 16 159/74 H 96 03/10/21 04:00 78 16 127/59 L 97 03/10/21 03:00 74 16 127/59 L 97 - Problem List Review Problem List Initiated/Reviewed/Updated: Yes - My Orders Last 24 Hours: My Active Orders 03/09/21 Dinner Consistent Carbohydrate Diet [DIET] 03/09/21 21:04 Resuscitation Status Routine 03/09/21 21:45 Dextrose 50% in Water 50 ml IVPUSH ONETIME PRN Ondansetron [Zofran] 4 mg IV Q4H PRN Sodium Chloride 0.9% [Saline Flush] 10 ml FLUSH ASDIRECTED PRN oxyCODONE 5 mg PO Q4H PRN polyethylene glycoL 3350 [MiraLAX] 17 gm PO DAILY PRN Medication Continuation Instructions [OM.PC] ASDIRECTED Medication Discontinuation Instructions [OM.PC] ASDIRECTED 03/09/21 21:45 Patient Status [ADT] Routine Ambulate [RC] QID Cardiac Monitoring [RC] Q6H Diabetes Education [RC] Click to Edit Diabetes Education [RC] Click to Edit Height and Weight [RC] DAILY Intake and Output [RC] QSHIFT Notify Provider Laboratory Res [RC] ASDIRECTED Notify Provider Laboratory Res [RC] ASDIRECTED Notify Provider Laboratory Res [RC] ASDIRECTED Notify Provider Vital Signs [RC] ASDIRECTED Peripheral IV Care [RC] . DIRECTED Up to Chair [RC] QID VTE/DVT Education [RC] Per Unit Routine Vital Signs [RC] Q1H Consult to Diabetic Nurse Specialist [CONS] Urgent Peripheral IV Insertion Adult [OM.PC] Routine 03/10/21 02:10 HEPATITIS PANEL (4) Routine 03/10/21 04:00 CERULOPLASMIN Routine 03/10/21 04:47 MISCELLANEOUS REFERENCE TEST Routine 03/10/21 04:50 MISCELLANEOUS REFERENCE TEST Routine 03/10/21 05:00 JOEY W/REFLEX Routine 03/10/21 10:24 Glucagon,Human Recombinant [GlucaGen] 1 mg IM ASDIRECTED PRN 03/10/21 11:00 Insulin Lispro [HumaLOG] See Protocol SUBCUT QIDACANDBED 03/10/21 14:00 Pantoprazole [ProTONIX IV] 40 mg IV Q12H 03/10/21 21:00 Enoxaparin [Lovenox] 40 mg SUBCUT BEDTIME Insulin Glarg,Human.Rec.Analog [LantUS Solostar] 45 units SUBCUT BEDTIME - Plan Plan:: ASSESSMENT AND PLAN HYPERGLYCEMIA-secondary to uncontrolled and untreated type 2 diabetes mellitus. He has had diabetes for many years and stopped taking all of his medications several months ago. Glucose levels have improved since admission -Moderate dose sliding scale Humalog -Lantus insulin 45 units subcu tonight -4 times daily glucometers -Bydureon 2 mg subcu weekly after discharge EPIGASTRIC ABDOMINAL PAIN-likely secondary to gastritis, persistent pain since admission -Protonix 40 mg IV every 12 hours -May need to consider upper GI endoscopy TYPE 2 DIABETES MELLITUS-on no medication over the past several months -Hopefully will get him to except at least once daily long-acting insulin-at the present time he is resistant to considering this HEPATIC CIRRHOSIS-I suspect that this is secondary to prior alcohol use, he also admits to previous IV drug use -Laboratory tests; test for viral hepatitis, ferritin, ceruloplasmin, JOEY, anti- smooth muscle antibody, antimitochondrial antibody, pending -Encouraged him to consider outpatient gastroenterology consult HEPATIC MASS-concerning for hepatocellular carcinoma -Gastroenterology referral as above -will likely need to consider biopsy if he agrees MAINTENANCE ISSUES -DVT prophylaxis; Lovenox 40 mg subcu daily -GI prophylaxis; Protonix as above -Parker catheter; not indicated -Nutrition; consistent carbohydrate diet -Nicotine dependence; not required CODE STATUS-FULL CODE ADMISSION STATUS-patient will be admitted to inpatient status, expect at least a 2 night hospital stay for evaluation and management of problems as outlined above. At the time of this admission I do not reasonably expected evaluation and management of this problem will require more than a 96 hour hospital stay. DISPOSITION-anticipate discharge to home after the hospital stay. PRIMARY CARE PROVIDER-he currently does not have a primary care provider
[2021-03-10] MEDS ORDERED: Insulin Lispro 100 Unit/ML 3 ML KwikPen SUBCUT ONE (16:54)
[2021-03-10] MEDS: Insulin Glargine,Human Rec. Analog 100 Units/ML 3 ML Pen SUBCUT SCH (20:58)
[2021-03-10] MEDS: Enoxaparin 40 MG/0.4 ML Syringe SUBCUT SCH (21:00)
[2021-03-11] MEDS: Pantoprazole 40 MG Vial IV SCH (02:17)
[2021-03-11] MEDS: oxyCODONE 5 MG Tab PO PRN ×2 (02:22→12:52)
[2021-03-11 09:12] LABS: HBSAG SCREEN Negative (Negative); HEP A AB, IGM Negative (Negative); HEP B CORE AB, IGM Negative (Negative); HEP C VIRUS AB >11.0 s/co ratio (0.0-0.9)
[2021-03-11] MEDS: Insulin Lispro 100 Unit/ML 3 ML KwikPen SUBCUT SCH ×4 (09:43→22:14)
[2021-03-11] MEDS ORDERED: Nicotine Polacrilex 2 MG Gum CHEW PRN (11:18)
--- NOTE | 2021-03-11 11:27 | PCM.PN ---
- General Info Date of Service: 03/11/21 Subjective Update: Mr. Trujillo has experienced improvement in glucose levels although they still remain elevated above desired range. He continues to experience epigastric abdominal pain. Nicotine withdrawal has been a problem for him over the last 24 hours. Functional Status: Reports: Tolerating Diet, Ambulating, Urinating - Review of Systems General: Reports: No Symptoms Pulmonary: Reports: No Symptoms Cardiovascular: Reports: No Symptoms Gastrointestinal: Reports: Abdominal Pain. Denies: Difficulty Swallowing, Hematochezia, Melena, Nausea, Vomiting Genitourinary: Reports: No Symptoms - Patient Data Vitals - Most Recent: Last Vital Signs Temp 97.6 F 03/11/21 08:00 Pulse 94 03/11/21 08:00 Resp 14 03/11/21 08:00 BP 164/79 H 03/11/21 08:00 Pulse Ox 94 L 03/11/21 08:00 Weight - Most Recent: 168 lb I&O - Last 24 Hours: Intake & Output 03/10/21 03/11/21 03/11/21 22:59 06:59 14:59 Intake Total 1872 240 Output Total 300 500 Balance 1572 -500 240 Lab Results Last 24 Hours: Laboratory Results - last 24 hr 03/10/21 03/10/21 03/10/21 Range/Units 02:10 15:38 16:50 POC Glucose 376 H 458 H* (74-106) mg/dL Hepatitis A IgM Ab Negative (Negative) Hep Bs Antigen Negative (Negative) Hep B Core IgM Ab Negative (Negative) Hepatitis C Antibody >11.0 H (0.0-0.9) s/co ratio 03/10/21 03/10/21 03/10/21 Range/Units 18:13 20:01 20:57 POC Glucose 336 H 251 H 191 H (74-106) mg/dL Hepatitis A IgM Ab (Negative) Hep Bs Antigen (Negative) Hep B Core IgM Ab (Negative) Hepatitis C Antibody (0.0-0.9) s/co ratio 03/11/21 03/11/21 Range/Units 09:25 11:09 POC Glucose 295 H 253 H (74-106) mg/dL Hepatitis A IgM Ab (Negative) Hep Bs Antigen (Negative) Hep B Core IgM Ab (Negative) Hepatitis C Antibody (0.0-0.9) s/co ratio Med Orders - Current: Current Medications Dextrose/Water (50% Dextrose In Water 50 Ml Syringe) 50 ml IVPUSH ONETIME PRN PRN Reason: Blood Glucose Enoxaparin Sodium (Enoxaparin 40 Mg/0.4 Ml Syringe) 40 mg SUBCUT BEDTIME [facility] Last Admin: 03/10/21 21:00 Dose: 40 mg Documented by: Glucagon (Glucagon,Human Recombinant 1 Mg Vial) 1 mg IM ASDIRECTED PRN PRN Reason: Hypoglycemia Insulin Glargine (Insulin Glargine,Human Rec. Analog 100 Units/Ml 3 Ml Pen) 45 units SUBCUT BEDTIME [facility] Last Admin: 03/10/21 20:58 Dose: 45 units Documented by: Insulin Human Lispro (Insulin Lispro 100 Unit/Ml 3 Ml Kwikpen) 0 unit SUBCUT QIDACANDBED [facility]; Protocol Last Admin: 03/11/21 11:12 Dose: 6 units Documented by: Nicotine (Nicotine 21 Mg/24 Hr Patch) 21 mg TRDERM DAILY [facility] Nicotine Polacrilex (Nicotine Polacrilex 2 Mg Gum) 2 mg CHEW Q1H PRN PRN Reason: Other Ondansetron HCl (Ondansetron 4 Mg/2 Ml Sdv) 4 mg IV Q4H PRN PRN Reason: Nausea/Vomiting Oxycodone HCl (Oxycodone 5 Mg Tab) 5 mg PO Q4H PRN PRN Reason: Pain (moderate 4-6) Last Admin: 03/11/21 02:22 Dose: 5 mg Documented by: Pantoprazole Sodium (Pantoprazole 40 Mg Tab.Cr) 40 mg PO BIDAC [facility] Polyethylene Glycol (Polyethylene Glycol 3350 Powder 17 Gm Packet) 17 gm PO DAILY PRN PRN Reason: Constipation Sodium Chloride (Sodium Chloride 0.9% 10 Ml Syringe) 10 ml FLUSH ASDIRECTED PRN PRN Reason: Keep Vein Open Discontinued Medications Enoxaparin Sodium (Enoxaparin 40 Mg/0.4 Ml Syringe) 40 mg SUBCUT DAILY [facility] Last Admin: 03/09/21 23:01 Dose: 40 mg Documented by: Hydromorphone HCl (Hydromorphone 0.5 Mg/0.5 Ml Syringe) 0.5 mg IVPUSH ONETIME ONE Stop: 03/09/21 17:57 Last Admin: 03/09/21 18:26 Dose: 0.5 mg Documented by: Sodium Chloride (Normal Saline) 1,000 mls @ 250 mls/hr IV ASDIRECTED [facility] Last Admin: 03/09/21 18:26 Dose: 250 mls/hr Documented by: Insulin Regular in 0.9 % NACL (Myxredlin In Ns 100 Unit/100 Ml) 100 unit in 100 mls @ 7.484 mls/hr IV ASDIRECTED [facility] Last Admin: 03/09/21 20:07 Dose: 0.1 units/kg/hr, 7.484 mls/hr Documented by: Sodium Chloride (Normal Saline) 1,000 mls @ 999 mls/hr IV ONETIME ONE Stop: 03/09/21 20:26 Last Admin: 03/09/21 20:08 Dose: 999 mls/hr Documented by: Sodium Chloride (Normal Saline) 90 mls @ 3.5 mls/sec IV ASDIRECTED [facility] Last Admin: 03/09/21 19:53 Dose: 3.5 mls/sec Documented by: Sodium Chloride (Normal Saline) 2,000 mls @ 500 mls/hr IV .CONTINUOUS PRN PRN Reason: Blood Glucose Dextrose/Sodium Chloride (Dextrose 5%-1/2 Ns) 1,000 mls @ 150 mls/hr IV .CONTINUOUS PRN PRN Reason: Blood Glucose Stop: 03/10/21 10:00 Last Admin: 03/10/21 08:59 Dose: 150 mls/hr Documented by: Potassium Chloride 20 meq/ (Premix) 100 mls @ 50 mls/hr IV ONETIME ONE Stop: 03/09/21 23:44 Last Admin: 03/09/21 23:28 Dose: Not Given Documented by: Potassium Chloride 20 meq/ (Premix) 100 mls @ 50 mls/hr IV Q2H PRN PRN Reason: Hypokalemia Potassium Chloride 20 meq/ (Premix) 100 mls @ 50 mls/hr IV Q2H PRN PRN Reason: Hypokalemia Magnesium Sulfate (Magnesium Sulfate In Water 2 Gm/50 Ml) 50 mls @ 25 mls/hr IV ONETIME PRN PRN Reason: low magnesium Last Admin: 03/10/21 05:52 Dose: 25 mls/hr Documented by: Sodium Phosphate 60 mmole/ (Sodium Chloride) 270 mls @ 62.5 mls/hr IV ONETIME PRN PRN Reason: Low phophorus Insulin Regular in 0.9 % NACL (Myxredlin In Ns 100 Unit/100 Ml) 100 mls @ 7.484 mls/hr IV ASDIRECTED [facility]; Protocol Stop: 03/10/21 10:00 Last Infusion: 03/10/21 10:08 Dose: 0 units/kg/hr, 0 mls/hr Documented by: Sodium Chloride (Normal Saline) 1,000 mls @ 250 mls/hr IV .CONTINUOUS PRN PRN Reason: Blood Glucose Stop: 03/10/21 10:00 Last Admin: 03/10/21 07:32 Dose: 250 mls/hr Documented by: Insulin Glargine (Insulin Glargine,Human Rec. Analog 100 Units/Ml 3 Ml Pen) 30 units SUBCUT BEDTIME [facility] Last Admin: 03/09/21 23:10 Dose: 30 units Documented by: Insulin Glargine (Insulin Glargine,Human Rec. Analog 100 Units/Ml 3 Ml Pen) 15 units SUBCUT NOW STA Stop: 03/10/21 10:04 Last Admin: 03/10/21 10:16 Dose: 15 units Documented by: Insulin Human Lispro (Insulin Lispro 100 Unit/Ml 3 Ml Kwikpen) 8 unit SUBCUT ONETIME ONE Stop: 03/10/21 16:55 Last Admin: 03/10/21 16:59 Dose: 8 units Documented by: Insulin Human Regular (Insulin Regular, Human 100 Units/Ml 3 Ml Vial) 10 unit IVPUSH ONETIME ONE Stop: 03/09/21 19:26 Last Admin: 03/09/21 19:44 Dose: 10 unit Documented by: Iopamidol (Iopamidol 612 Mg/Ml 150 Ml Bottle) 113 ml IV . DIRECTED [facility] Last Admin: 03/09/21 19:53 Dose: 113 ml Documented by: Pantoprazole Sodium (Pantoprazole 40 Mg Vial) 40 mg IV Q12H [facility] Last Admin: 03/10/21 02:21 Dose: 40 mg Documented by: Pantoprazole Sodium (Pantoprazole 40 Mg Vial) 40 mg IV Q12H [facility] Last Admin: 03/11/21 02:17 Dose: 40 mg Documented by: Potassium Chloride (Potassium Chloride 10% 20 Meq/15 Ml Soln 15 Ml Ud Cup) 20 meq PO NOW PRN PRN Reason: Hypokalemia Last Admin: 03/09/21 23:18 Dose: 20 meq Documented by: Potassium Chloride (Potassium Chloride 10% 20 Meq/15 Ml Soln 15 Ml Ud Cup) 40 meq PO NOW PRN PRN Reason: Hypokalemia Potassium Chloride (Potassium Chloride 10% 20 Meq/15 Ml Soln 15 Ml Ud Cup) 40 meq PO Q2H PRN PRN Reason: Hypokalemia - Exam Quality Assessment: DVT Prophylaxis General: Alert, Oriented, Cooperative, Mild Distress Lungs: Clear to Auscultation, Normal Respiratory Effort, Decreased Breath Sounds Cardiovascular: Regular Rate, Regular Rhythm, No Murmurs GI/Abdominal Exam: Soft, No Organomegaly, Tender. No: Distended, Guarding, Rigid, Rebound Extremities: Non-Tender, No Pedal Edema - Patient Data Lab Results Last 24 hrs: Laboratory Results - last 24 hr 03/10/21 03/10/21 03/10/21 Range/Units 02:10 15:38 16:50 POC Glucose 376 H 458 H* (74-106) mg/dL Hepatitis A IgM Ab Negative (Negative) Hep Bs Antigen Negative (Negative) Hep B Core IgM Ab Negative (Negative) Hepatitis C Antibody >11.0 H (0.0-0.9) s/co ratio 03/10/21 03/10/21 03/10/21 Range/Units 18:13 20:01 20:57 POC Glucose 336 H 251 H 191 H (74-106) mg/dL Hepatitis A IgM Ab (Negative) Hep Bs Antigen (Negative) Hep B Core IgM Ab (Negative) Hepatitis C Antibody (0.0-0.9) s/co ratio 03/11/21 03/11/21 Range/Units 09:25 11:09 POC Glucose 295 H 253 H (74-106) mg/dL Hepatitis A IgM Ab (Negative) Hep Bs Antigen (Negative) Hep B Core IgM Ab (Negative) Hepatitis C Antibody (0.0-0.9) s/co ratio Result Diagrams: 03/10/21 04:00 03/10/21 09:45 Sepsis Event Note - Evaluation Sepsis Screening Result: No Definite Risk - Focused Exam Vital Signs: Vital Signs Temp Pulse Resp BP Pulse Ox 03/11/21 08:00 97.6 F 94 14 164/79 H 94 L 03/11/21 06:00 82 13 123/72 98 03/11/21 05:00 89 13 140/79 94 L 03/11/21 04:00 82 13 134/79 98 03/11/21 03:00 89 13 130/73 97 03/11/21 02:00 97.4 F 83 15 130/73 93 L 03/11/21 01:00 80 16 131/76 96 03/11/21 00:00 84 16 162/84 H 94 L - Problem List Review Problem List Initiated/Reviewed/Updated: Yes - My Orders Last 24 Hours: My Active Orders 03/10/21 11:00 Insulin Lispro [HumaLOG] See Protocol SUBCUT QIDACANDBED 03/10/21 21:00 Enoxaparin [Lovenox] 40 mg SUBCUT BEDTIME Insulin Glarg,Human.Rec.Analog [LantUS Solostar] 45 units SUBCUT BEDTIME 03/11/21 11:18 Nicotine Polacrilex [Nicorelief] 2 mg CHEW Q1H PRN 03/11/21 11:22 Consult to Physician [CONS] Routine 03/11/21 11:23 Notify Provider Consults [RC] ASDIRECTED 03/11/21 11:24 Patient Status [ADT] Routine 03/11/21 11:30 Nicotine [Habitrol] 21 mg TRDERM DAILY 03/11/21 16:30 Pantoprazole [ProTONIX] 40 mg PO BIDAC 03/12/21 Breakfast NPO After Midnight [Nothing per Oral After Midnight Diet] [DIET] - Plan Plan:: ASSESSMENT AND PLAN HYPERGLYCEMIA-secondary to uncontrolled and untreated type 2 diabetes mellitus. He has had diabetes for many years and stopped taking all of his medications several months ago. Glucose levels have improved since admission -Moderate dose sliding scale Humalog -Lantus insulin 45 units subcu tonight -4 times daily glucometers -Bydureon 2 mg subcu weekly after discharge EPIGASTRIC ABDOMINAL PAIN-likely secondary to gastritis, persistent pain since admission -Protonix 40 mg IV every 12 hours -Consult Dr. Vega for EGD in a.m. TYPE 2 DIABETES MELLITUS-on no medication over the past several months -Hopefully will get him to except at least once daily long-acting insulin-at the present time he is resistant to considering this HEPATIC CIRRHOSIS-I suspect that this is secondary to prior alcohol use, he also admits to previous IV drug use -Laboratory tests; test for viral hepatitis, ferritin, ceruloplasmin, JOEY, anti- smooth muscle antibody, antimitochondrial antibody, pending -Encouraged him to consider outpatient gastroenterology consult HEPATIC MASS-concerning for hepatocellular carcinoma -Gastroenterology referral as above -will likely need to consider biopsy if he agrees MAINTENANCE ISSUES -DVT prophylaxis; Lovenox 40 mg subcu daily -GI prophylaxis; Protonix as above -Parker catheter; not indicated -Nutrition; consistent carbohydrate diet -Nicotine dependence; not required CODE STATUS-FULL CODE ADMISSION STATUS-patient will be admitted to inpatient status, expect at least a 2 night hospital stay for evaluation and management of problems as outlined above. At the time of this admission I do not reasonably expected evaluation and management of this problem will require more than a 96 hour hospital stay. DISPOSITION-anticipate discharge to home after the hospital stay. PRIMARY CARE PROVIDER-he currently does not have a primary care provider
[2021-03-11] MEDS: Nicotine 21 MG/24 Hr Patch TRDERM SCH (12:49)
[2021-03-11] MEDS: Pantoprazole 40 MG Tab.CR PO SCH (16:36)
--- NOTE | 2021-03-11 21:45 | PCM.SN.2 ---
- Free Text/Narrative Note: Telephone call from [employer] Developer at 20:06 Mr. Trujillo decided he wanted to leave the hospital, tired of being here, worried about the tests tomorrow. He left his room, went into the ER and removed his IV saline lock. He [place] a few blocks away from the hospital and plans to walk home. A: Left the hospital at 20:06 P: will plan to discharge from hospital if doesn't return in a timely manner. Telephone call from [employer] Developer at 21:30 Mr. Trujillo has returned to the hospital. He will stay to have the tests completed and continue with his plan of care. O; vital signs 97.7-89- 16 B/P 130/82 O2 sat room air 95% A: return to the hospital at 2130 P: will welcome back to hospital and continue present plan of care. he will need to be NPO after midnight for testing in am.
[2021-03-11] MEDS: Insulin Glargine,Human Rec. Analog 100 Units/ML 3 ML Pen SUBCUT SCH (22:11)
[2021-03-11] MEDS: Enoxaparin 40 MG/0.4 ML Syringe SUBCUT SCH (22:15)
[2021-03-12] MEDS: Insulin Lispro 100 Unit/ML 3 ML KwikPen SUBCUT SCH ×2 (09:24→12:45)
[2021-03-12] MEDS: Nicotine 21 MG/24 Hr Patch TRDERM SCH (09:36)
[2021-03-12] MEDS ORDERED: Propofol 200 MG/20 ML SDV ONE (10:17)
[2021-03-12] MEDS ORDERED: fentaNYL 100 MCG/2 ML SDV ONE (10:17)
[2021-03-12] MEDS ORDERED: Midazolam 1 MG/ML 2 ML SDV ONE (10:18)
[2021-03-12 11:40] VITALS: BP 126/66; PULSE 78
[2021-03-12] MEDS: Pantoprazole 40 MG Vial IV SCH (12:41)
[2021-03-12] MEDS: Pantoprazole 40 MG Tab.CR PO SCH (12:52)
--- NOTE | 2021-03-12 13:59 | PCM.DCSUM1 ---
Discharge Summary - Hospital Course Brief History: Mr. Truijllo is a 70-year-old gentleman who was admitted through the emergency department with uncontrolled hyperglycemia and abdominal pain. - Discharge Data Discharge Date: 03/12/21 Discharge Disposition: Home, Self-Care 01 Condition: Stable - Referral to Home Health Primary Care Physician: PCP None - Discharge Diagnosis/Problem(s) (1) Liver mass SNOMED Code(s): 833685804 ICD Code: R16.0 - HEPATOMEGALY, NOT ELSEWHERE CLASSIFIED Status: Acute Current Visit: Yes (2) Esophageal varices SNOMED Code(s): 88854173 ICD Code: I85.00 - ESOPHAGEAL VARICES WITHOUT BLEEDING Status: Acute Current Visit: Yes (3) Gastritis SNOMED Code(s): 4601121 ICD Code: K29.70 - GASTRITIS, UNSPECIFIED, WITHOUT BLEEDING Status: Acute Current Visit: Yes (4) Hyperglycemia SNOMED Code(s): 02546467 ICD Code: R73.9 - HYPERGLYCEMIA, UNSPECIFIED Status: Acute Current Visit: Yes (5) COPD (chronic obstructive pulmonary disease) SNOMED Code(s): 38219339 ICD Code: J44.9 - CHRONIC OBSTRUCTIVE PULMONARY DISEASE, UNSPECIFIED Status: Chronic Current Visit: No (6) Type 2 diabetes mellitus SNOMED Code(s): 45650880 ICD Code: E11.9 - TYPE 2 DIABETES MELLITUS WITHOUT COMPLICATIONS Status: Chronic Current Visit: No (7) Hepatic cirrhosis due to chronic hepatitis C infection SNOMED Code(s): 301975425459 ICD Code: B18.2 - CHRONIC VIRAL HEPATITIS C; K74.60 - UNSPECIFIED CIRRHOSIS OF LIVER Status: Chronic Current Visit: No - Patient Summary/Data Consults: Consultations 03/09/21 21:45 Consult to Diabetic Nurse Specialist [CONS] Urgent Comment: Physician Instructions: 03/11/21 11:22 Consult to Physician [CONS] Routine Consulting Provider: Augie Vega Courtesy Call Completed to Consulting Physician: Yes Reason for Consult: Epigastric abdominal pain, EGD in a.m. Hospital Course: Mr. Trujillo is a 70-year-old gentleman who was admitted through the emergency department with marked hyperglycemia and abdominal pain secondary to uncontrolled type 2 diabetes mellitus. He had been taking insulin for manageme nt of his diabetes but stopped taking it several months ago. He tries to manage his diabetes by what he eats and drinks but has not been checking blood sugar levels. He came into the emergency department because of epigastric pain that he has had for the past 2 to 3 days. Pain is described as an intense ache that is constant, does not seem to vary with eating. Other than a glucose level of 800 to his labs were fairly unremarkable. CT scan of the abdomen and pelvis shows evidence of hepatic cirrhosis and a mass worrisome for hepatocellular carcinoma. He reports that he is known about the cirrhosis but has not done anything about it and really is not interested in much in the way of further evaluation or management of cirrhosis or possible malignancy. He has a history of alcohol and drug abuse but strongly denies heavy use of alcohol over the past few months. On admission he was started on continuous insulin infusion as well as IV fluids. Glucose levels were monitored hourly and electrolytes were also monitored. By the following day glucose levels were under better control and he was transitioned to long-acting subcutaneous insulin with sliding scale short acting insulin. He initially was resistant to once daily insulin injections but by the time of discharge she did agree to proceed with these. He was seen by airfield operations specialist during his stay and at the time of discharge she will also be started on Bydureon 2 mg weekly. He was started on Protonix IV twice daily during the initial few days of his hospital stay and this was then transitioned to oral Protonix twice daily. On the day of discharge she was seen and evaluated by Dr. Vega. EGD was performed which showed evidence of esophageal varices and diffuse gastritis. He will be discharged home with Protonix twice daily for 2 weeks, then once daily thereafter. We discussed further evaluation of his cirrhosis and hepatic mass and he has refused any further intervention or evaluation at this time. Activity will be as tolerated and he will be on a diabetic diet. Follow-up appointment will be scheduled with his primary care provider within 1 week. Follow-up appointment will also be scheduled with the airfield operations specialist. Laboratory tests were obtained during his hospitalization and hepatitis C was found to be positive. - Patient Instructions Diet: Diabetic Diet Activity: As Tolerated Other/Special Instructions: Please schedule follow-up appointment with Dr. Rico within 1 week. Please schedule follow-up appointment with airfield operations specialist - Discharge Plan *PRESCRIPTION DRUG MONITORING PROGRAM REVIEWED*: Not Applicable *COPY OF PRESCRIPTION DRUG MONITORING REPORT IN PATIENT MARIELA: Not Applicable Prescriptions/Med Rec: Exenatide Microspheres [Bydureon] 2 mg SQ WEEKLY #4 vial Insulin Glarg,Human.Rec.Analog [Lantus Solostar] 40 units SUBCUT BEDTIME #2 pen Pantoprazole [ProTONIX] 40 mg PO BIDAC #30 tab.cr Home Medications: Home Meds Exenatide Microspheres [Bydureon] 2 mg SQ WEEKLY #4 vial 03/12/21 [Rx] Insulin Glarg,Human.Rec.Analog [Lantus Solostar] 40 units SUBCUT BEDTIME #2 pen 03/12/21 [Rx] Pantoprazole [ProTONIX] 40 mg PO BIDAC #30 tab.cr 03/12/21 [Rx] Patient Handouts: Low-Fiber Eating Plan Referrals: Laura Jones [Registered Dietitian] - 03/19/21 1:00 pm (Please arrive 15 minutes early to register for appointment.) Portillo Rico MD [Physician] - 03/23/21 1:20 pm (Please arrive 15 minutes early to register for your appointment.) - Discharge Summary/Plan Comment DC Time >30 min.: No Total # of Minutes for Discharge Time: 20 - Patient Data Vitals - Most Recent: Last Vital Signs Temp 97.6 F 03/12/21 11:38 Pulse 78 03/12/21 11:38 Resp 16 03/12/21 11:38 BP 126/66 03/12/21 11:38 Pulse Ox 92 L 03/12/21 11:38 Weight - Most Recent: 165 lb 8 oz I&O - Last 24 hours: Intake & Output 03/11/21 03/12/21 03/12/21 22:59 06:59 14:59 Intake Total 1100 200 Balance 1100 200 Lab Results - Last 24 hrs: Laboratory Results - last 24 hr 03/10/21 03/11/21 03/11/21 Range/Units 04:00 16:31 22:10 POC Glucose 296 H 276 H (74-106) mg/dL Ceruloplasmin 33.6 H (16.0-31.0) mg/dL 03/12/21 03/12/21 Range/Units 08:55 12:40 POC Glucose 112 H 135 H (74-106) mg/dL Ceruloplasmin (16.0-31.0) mg/dL Med Orders - Current: Current Medications Dextrose/Water (50% Dextrose In Water 50 Ml Syringe) 50 ml IVPUSH ONETIME PRN PRN Reason: Blood Glucose Enoxaparin Sodium (Enoxaparin 40 Mg/0.4 Ml Syringe) 40 mg SUBCUT BEDTIME [facility] Last Admin: 03/11/21 22:15 Dose: 40 mg Documented by: Glucagon (Glucagon,Human Recombinant 1 Mg Vial) 1 mg IM ASDIRECTED PRN PRN Reason: Hypoglycemia Insulin Glargine (Insulin Glargine,Human Rec. Analog 100 Units/Ml 3 Ml Pen) 45 units SUBCUT BEDTIME [facility] Last Admin: 03/11/21 22:11 Dose: 45 units Documented by: Insulin Human Lispro (Insulin Lispro 100 Unit/Ml 3 Ml Kwikpen) 0 unit SUBCUT QIDACANDBED [facility]; Protocol Last Admin: 03/12/21 12:45 Dose: Not Given Documented by: Nicotine (Nicotine 21 Mg/24 Hr Patch) 21 mg TRDERM DAILY [facility] Last Admin: 03/12/21 09:36 Dose: Not Given Documented by: Nicotine Polacrilex (Nicotine Polacrilex 2 Mg Gum) 2 mg CHEW Q1H PRN PRN Reason: Other Last Admin: 03/12/21 09:35 Dose: 2 mg Documented by: Ondansetron HCl (Ondansetron 4 Mg/2 Ml Sdv) 4 mg IV Q4H PRN PRN Reason: Nausea/Vomiting Oxycodone HCl (Oxycodone 5 Mg Tab) 5 mg PO Q4H PRN PRN Reason: Pain (moderate 4-6) Last Admin: 03/11/21 12:52 Dose: 5 mg Documented by: Pantoprazole Sodium (Pantoprazole 40 Mg Tab.Cr) 40 mg PO BIDAC [facility] Last Admin: 03/12/21 12:52 Dose: Not Given Documented by: Polyethylene Glycol (Polyethylene Glycol 3350 Powder 17 Gm Packet) 17 gm PO DAILY PRN PRN Reason: Constipation Sodium Chloride (Sodium Chloride 0.9% 10 Ml Syringe) 10 ml FLUSH ASDIRECTED PRN PRN Reason: Keep Vein Open Discontinued Medications Enoxaparin Sodium (Enoxaparin 40 Mg/0.4 Ml Syringe) 40 mg SUBCUT DAILY [facility] Last Admin: 03/09/21 23:01 Dose: 40 mg Documented by: Fentanyl (Fentanyl 100 Mcg/2 Ml Sdv) Confirm Administered Dose 100 mcg .ROUTE .STK-MED ONE Stop: 03/12/21 10:18 Hydromorphone HCl (Hydromorphone 0.5 Mg/0.5 Ml Syringe) 0.5 mg IVPUSH ONETIME ONE Stop: 03/09/21 17:57 Last Admin: 03/09/21 18:26 Dose: 0.5 mg Documented by: Sodium Chloride (Normal Saline) 1,000 mls @ 250 mls[facility]hr [facility] Last Admin: 03/09/21 18:26 Dose: 250 mls/hr Documented by: Insulin Regular in 0.9 % NACL (Myxredlin In Ns 100 Unit/100 Ml) 100 unit in 100 mls @ 7.484 mls/hr [facility] Last Admin: 03/09/21 20:07 Dose: 0.1 units/kg/hr, 7.484 mls/hr Documented by: Sodium Chloride (Normal Saline) 1,000 mls @ 999 mls/hr IV ONETIME ONE Stop: 03/09/21 20:26 Last Admin: 03/09/21 20:08 Dose: 999 mls/hr Documented by: Sodium Chloride (Normal Saline) 90 mls @ 3.5 mls/sec [facility] Last Admin: 03/09/21 19:53 Dose: 3.5 mls/sec Documented by: Sodium Chloride (Normal Saline) 2,000 mls @ 500 mls/hr IV .CONTINUOUS PRN PRN Reason: Blood Glucose Dextrose/Sodium Chloride (Dextrose 5%-1/2 Ns) 1,000 mls @ 150 mls/hr IV .CONTINUOUS PRN PRN Reason: Blood Glucose Stop: 03/10/21 10:00 Last Admin: 03/10/21 08:59 Dose: 150 mls/hr Documented by: Potassium Chloride 20 meq/ (Premix) 100 mls @ 50 mls/hr IV ONETIME ONE Stop: 03/09/21 23:44 Last Admin: 03/09/21 23:28 Dose: Not Given Documented by: Potassium Chloride 20 meq/ (Premix) 100 mls @ 50 mls/hr IV Q2H PRN PRN Reason: Hypokalemia Potassium Chloride 20 meq/ (Premix) 100 mls @ 50 mls/hr IV Q2H PRN PRN Reason: Hypokalemia Magnesium Sulfate (Magnesium Sulfate In Water 2 Gm/50 Ml) 50 mls @ 25 mls/hr IV ONETIME PRN PRN Reason: low magnesium Last Admin: 03/10/21 05:52 Dose: 25 mls/hr Documented by: Sodium Phosphate 60 mmole/ (Sodium Chloride) 270 mls @ 62.5 mls/hr IV ONETIME PRN PRN Reason: Low phophorus Insulin Regular in 0.9 % NACL (Myxredlin In Ns 100 Unit/100 Ml) 100 mls @ 7.484 mls/hr IV ASDIRECTED [facility]; Protocol Stop: 03/10/21 10:00 Last Infusion: 03/10/21 10:08 Dose: 0 units/kg/hr, 0 mls/hr Documented by: Sodium Chloride (Normal Saline) 1,000 mls @ 250 mls/hr IV .CONTINUOUS PRN PRN Reason: Blood Glucose Stop: 03/10/21 10:00 Last Admin: 03/10/21 07:32 Dose: 250 mls/hr Documented by: Insulin Glargine (Insulin Glargine,Human Rec. Analog 100 Units/Ml 3 Ml Pen) 30 units SUBCUT BEDTIME [facility] Last Admin: 03/09/21 23:10 Dose: 30 units Documented by: Insulin Glargine (Insulin Glargine,Human Rec. Analog 100 Units/Ml 3 Ml Pen) 15 units SUBCUT NOW STA Stop: 03/10/21 10:04 Last Admin: 03/10/21 10:16 Dose: 15 units Documented by: Insulin Human Lispro (Insulin Lispro 100 Unit/Ml 3 Ml Kwikpen) 8 unit SUBCUT ONETIME ONE Stop: 03/10/21 16:55 Last Admin: 03/10/21 16:59 Dose: 8 units Documented by: Insulin Human Regular (Insulin Regular, Human 100 Units/Ml 3 Ml Vial) 10 unit IVPUSH ONETIME ONE Stop: 03/09/21 19:26 Last Admin: 03/09/21 19:44 Dose: 10 unit Documented by: Iopamidol (Iopamidol 612 Mg/Ml 150 Ml Bottle) 113 ml IV . DIRECTED [facility] Last Admin: 03/09/21 19:53 Dose: 113 ml Documented by: Midazolam HCl (Midazolam 1 Mg/Ml 2 Ml Sdv) Confirm Administered Dose 2 mg .ROUTE .[employer] ONE Stop: 03/12/21 10:19 Pantoprazole Sodium (Pantoprazole 40 Mg Vial) 40 mg IV Q12H [facility] Last Admin: 03/12/21 12:41 Dose: 40 mg Documented by: Pantoprazole Sodium (Pantoprazole 40 Mg Vial) 40 mg IV Q12H [facility] Last Admin: 03/11/21 02:17 Dose: 40 mg Documented by: Potassium Chloride (Potassium Chloride 10% 20 Meq/15 Ml Soln 15 Ml Ud Cup) 20 meq PO NOW PRN PRN Reason: Hypokalemia Last Admin: 03/09/21 23:18 Dose: 20 meq Documented by: Potassium Chloride (Potassium Chloride 10% 20 Meq/15 Ml Soln 15 Ml Ud Cup) 40 meq PO NOW PRN PRN Reason: Hypokalemia Potassium Chloride (Potassium Chloride 10% 20 Meq/15 Ml Soln 15 Ml Ud Cup) 40 meq PO Q2H PRN PRN Reason: Hypokalemia Propofol (Propofol 200 Mg/20 Ml Sdv) Confirm Administered Dose 200 mg .ROUTE .[employer] ONE Stop: 03/12/21 10:18 - Exam Quality Assessment: Reports: DVT Prophylaxis General: Reports: Alert, Oriented, Cooperative, Mild Distress Lungs: Reports: Clear to Auscultation, Normal Respiratory Effort, Decreased Breath Sounds Cardiovascular: Reports: Regular Rate, Regular Rhythm, No Murmurs GI/Abdominal Exam: Soft, No Organomegaly, Tender. No: Distended, Guarding, Rigid, Rebound Extremities: Non-Tender, No Pedal Edema
== END 2021-03-12 14:30 | disposition home or self-care (01) | DRG 638 ==
LOC: JP.ED 16:27 → JP.ICU 21:02 → UNDODISIN 03-11 21:10
PROVIDERS: ADMIT Hospitalist; ATTEND Hospitalist
DX: R10.13 Epigastric pain (principal); R73.9 Hyperglycemia, unspecified; H54.7 Unspecified visual loss; E11.65 Type 2 diabetes mellitus with hyperglycemia; I85.10 Secondary esophageal varices without bleeding; Z20.822 Contact with and (suspected) exposure to COVID-19; K29.70 Gastritis, unspecified, without bleeding; R16.0 Hepatomegaly, not elsewhere classified; J44.9 Chronic obstructive pulmonary disease, unspecified; B18.2 Chronic viral hepatitis C; K74.60 Unspecified cirrhosis of liver; F17.210 Nicotine dependence, cigarettes, uncomplicated; Z79.4 Long term (current) use of insulin
CPT/HCPCS: 0241U; 36415; 74177; 80048; 80053; 80074; 81001; 82390; 82728; 82947; 83605; 83690; 83735; 84100; 84132; 85025; 87081; 96374; 99285-25; A9270-GY; C9113; J1170; J1650; J1815; J1815-GY; J2250; J2704; J3010; J3475; J7030; J7042; Q9967

== ENCOUNTER 2022-03-17 15:40 | Emergency (ER) | payer MEDICARE ==
[2022-03-17] MEDS ORDERED: Sodium Chloride 0.9% 10 ML Syringe FLUSH PRN (17:08)
[2022-03-17] MEDS ORDERED: Sodium Chloride 0.9% 1,000 ML IV ONE (17:08)
[2022-03-17] MEDS ORDERED: Glucagon,Human Recombinant 1 MG Vial IM PRN ×2 (17:11→18:32)
[2022-03-17] MEDS ORDERED: 50% Dextrose in Water 50 ML Syringe IVPUSH PRN ×2 (17:11→18:32)
[2022-03-17] MEDS ORDERED: Insulin Glargine,Human Rec. Analog 100 Units/ML 3 ML Pen SUBCUT SCH (17:15)
[2022-03-17] MEDS ORDERED: Tamsulosin 0.4 MG Cap.ER PO ONE (18:31)
[2022-03-17] MEDS ORDERED: Insulin Lispro 100 Units/ML 3 ML Vial SUBCUT ONE (18:32)
== END 2022-03-17 19:11 | disposition home or self-care (01) ==
LOC: JP.ED 15:40
DX: E11.65 Type 2 diabetes mellitus with hyperglycemia (principal); E86.0 Dehydration; I10 Essential (primary) hypertension; F15.10 Other stimulant abuse, uncomplicated; J44.9 Chronic obstructive pulmonary disease, unspecified; Z79.4 Long term (current) use of insulin
CPT/HCPCS: 36415; 80048; 82947; 96360; 99284; A9270; J1815; J7030

== ENCOUNTER 2022-05-01 16:48 | Emergency (ER) | payer MEDICARE ==
[2022-05-01] MEDS ORDERED: Sodium Chloride 0.9% 10 ML Syringe FLUSH PRN (18:21)
[2022-05-01] MEDS ORDERED: Sodium Chloride 0.9% 1,000 ML IV SCH (18:30)
[2022-05-01 19:02] LABS: CORONAVIRUS COVID-19 NAA NEGATIVE (NEGATIVE)
[2022-05-01 19:50] LABS: ESTIMATED GFR 96 mL/min (>60)
== END 2022-05-01 21:03 | disposition home or self-care (01) ==
LOC: JP.ED 16:48
DX: E11.65 Type 2 diabetes mellitus with hyperglycemia (principal); E11.00 Type 2 diabetes mellitus with hyperosmolarity without nonketotic hyperglycemic-hyperosmolar coma (NKHHC); F15.10 Other stimulant abuse, uncomplicated; E72.20 Disorder of urea cycle metabolism, unspecified; Z79.4 Long term (current) use of insulin; J44.9 Chronic obstructive pulmonary disease, unspecified; E11.40 Type 2 diabetes mellitus with diabetic neuropathy, unspecified; Z72.0 Tobacco use; Z79.899 Other long term (current) drug therapy; Z20.822 Contact with and (suspected) exposure to COVID-19
CPT/HCPCS: 0241U; 36415; 36600; 80053; 81001; 82009; 82140; 82803; 85025; 96360; 99284; J3490; J7030

== ENCOUNTER 2022-05-28 01:01 | Emergency (ER) | payer MEDICARE, MEDICAID ==
[2022-05-28] MEDS ORDERED: Lactulose Soln 10 GM/15 ML 15 ML UD Cup PO ONE (01:31)
[2022-05-28 02:15] LABS: ESTIMATED GFR 96 mL/min (>60)
[2022-05-28 02:49] LABS: CORONAVIRUS COVID-19 NAA NEGATIVE (NEGATIVE)
[2022-05-28] MEDS ORDERED: Ciprofloxacin 500 MG Tab PO ONE (03:03)
[2022-05-28] MEDS ORDERED: 50% Dextrose in Water 50 ML Syringe IVPUSH PRN (07:29)
[2022-05-28] MEDS ORDERED: Glucagon,Human Recombinant 1 MG Vial IM PRN (07:29)
[2022-05-28] MEDS ORDERED: Insulin Lispro 100 Units/ML 3 ML Vial SUBCUT SCH (07:30)
== END 2022-05-28 08:50 | disposition home or self-care (01) ==
LOC: JP.ED 01:01
DX: B18.9 Chronic viral hepatitis, unspecified (principal); K74.60 Unspecified cirrhosis of liver; K76.82 Hepatic encephalopathy; F15.10 Other stimulant abuse, uncomplicated; J44.9 Chronic obstructive pulmonary disease, unspecified; E11.40 Type 2 diabetes mellitus with diabetic neuropathy, unspecified; Z79.4 Long term (current) use of insulin; Z79.899 Other long term (current) drug therapy
CPT/HCPCS: 0241U; 36415; 80053; 80305; 81001; 82140; 82947; 85025; 99285; A9270; J1815

== ENCOUNTER 2022-07-20 11:47 | Emergency (ER) | payer MEDICARE, MEDICAID ==
[2022-07-20] MEDS ORDERED: Sodium Chloride 0.9% 10 ML Syringe FLUSH PRN (13:41)
[2022-07-20] MEDS ORDERED: Lactated Ringers 1,000 ML IV SCH (13:45)
[2022-07-20 14:42] LABS: ESTIMATED GFR 73 mL/min (>60); TROPONIN I HIGH SENSITIVITY 11.4 pg/mL (<=60.3)
[2022-07-20] MEDS ORDERED: Sodium Chloride 0.9% 10 ML SDV FLUSH ONE (15:03)
[2022-07-20] MEDS ORDERED: Iopamidol 612 MG/ML 100 ML Bottle IV PRN (15:03)
[2022-07-20] MEDS ORDERED: Sodium Chloride 0.9% 100 ML IV SCH (15:15)
[2022-07-20] MEDS ORDERED: cefTRIAXone 2 GM in Sodium Chloride 0.9% 50 ML IV ONE (16:17)
[2022-07-20] MEDS ORDERED: Famotidine 20 MG Tab PO ONE (17:06)
== END 2022-07-20 18:15 | disposition home or self-care (01) ==
LOC: JP.ED 11:47
DX: R04.2 Hemoptysis (principal); I81 Portal vein thrombosis; D64.9 Anemia, unspecified; R19.5 Other fecal abnormalities; R16.0 Hepatomegaly, not elsewhere classified; I10 Essential (primary) hypertension; E11.9 Type 2 diabetes mellitus without complications; K21.9 Gastro-esophageal reflux disease without esophagitis; N40.0 Benign prostatic hyperplasia without lower urinary tract symptoms; Z72.0 Tobacco use; Z79.899 Other long term (current) drug therapy; Z79.4 Long term (current) use of insulin
CPT/HCPCS: 36415; 71260; 71260-26; 74177; 74177-26; 80053; 83605; 83690; 84145; 84484; 85025; 85610; 85730; 86140; 87040; 96361; 96365; 99284-25; A9270-GY; J0696; J3490; J7120; Q9967

== ENCOUNTER 2022-07-26 08:32 | Emergency (ER) | payer MEDICARE, MEDICAID ==
[2022-07-26 09:59] LABS: BASOPHILS PERCENT AUTO 0.2 % (0.1-1.3); EOSINOPHILS ABSOLUTE AUTO 0.04 K/uL (0.00-0.40); EOSINOPHILS PERCENT AUTO 0.3 % (0.0-5.4); HEMOGLOBIN 7.8 g/dL (12.9-16.9); IMMATURE GRAN ABSOLUTE AUTO 0.08 K/uL (0.00-0.23); IMMATURE GRAN PERCENT AUTO 0.7 % (0.0-0.7); LYMPHOCYTES ABSOLUTE AUTO 1.85 K/uL (0.8-3.3); LYMPHOCYTES PERCENT AUTO 16.1 % (11.4-47.7); MEAN CORPUSCULAR HEMOGLOBIN 31.1 pg (31.6-35.5); MEAN CORPUSCULAR HGB CONC 32.5 g/dL (31.6-35.5); MEAN CORPUSCULAR VOLUME 95.6 fL (81.4-99.0); MONOCYTES PERCENT AUTO 11.3 % (3.3-12.6); NEUTROPHILS ABSOLUTE AUTO 8.19 K/uL (1.0-7.6); NEUTROPHILS PERCENT AUTO 71.4 % (40.0-78.1); PLATELET COUNT,PLT 217 K/uL (130-375); RED BLOOD CELL COUNT 2.51 M/uL (4.14-5.76); WHITE BLOOD CELL COUNT,WBC 11.5 K/uL (3.2-11.0)
[2022-07-26 10:00] LABS: BASOPHILS ABSOLUTE AUTO 0.02 K/uL (0.00-0.10)
[2022-07-26 10:20] LABS: A/G RATIO 0.2 (1.2-2.2); ALANINE AMINOTRANSFERASE,ALT 48 U/L (12-78); ALBUMIN 1.4 g/dL (3.4-5.0); ALKALINE PHOSPHATASE 204 U/L (46-116); ASPARTATE AMNIOTRANSFERASE,AST 159 U/L (15-37); BILIRUBIN TOTAL 1.9 mg/dL (0.2-1.0); BLOOD UREA NITROGEN,BUN 16 mg/dL (7-18); CARBON DIOXIDE,CO2 23 mmol/L (21-32); CHLORIDE,CL 104 mmol/L (100-108); EST CRCL DRUG DOSING (CG) 64.86 mL/min; ESTIMATED GFR 81 mL/min (>60); GLUCOSE RANDOM 143 mg/dL (74-106); POTASSIUM,K 3.8 mmol/L (3.6-5.2); SODIUM,NA 134 mmol/L (140-148)
[2022-07-26 10:21] LABS: ANION GAP 10.8 mmol/L (5.0-14.0)
[2022-07-26 12:53] LABS: APPEARANCE,URINE CLEAR (CLEAR); BILIRUBIN,URINE NEGATIVE (NEGATIVE); COLOR,URINE YELLOW (YELLOW); GLUCOSE,URINE NEGATIVE (NEGATIVE); KETONES,URINE NEGATIVE (NEGATIVE); LEUKOCYTE ESTERASE,URINE NEGATIVE (NEGATIVE); NITRITE,URINE NEGATIVE (NEGATIVE); OCCULT BLOOD,URINE NEGATIVE (NEGATIVE); PH,URINE 5.5 (5.0-8.0); PROTEIN,URINE NEGATIVE (NEGATIVE)
[2022-07-26 12:55] LABS: AMORPHOUS SEDIMENT,URINE NOT SEEN; BACTERIA,URINE NOT SEEN; EPITHELIAL CELLS,URINE FEW; MUCUS,URINE MODERATE; RBC,URINE 0-5 (0-5); WBC,URINE 0-5 (0-5)
[2022-07-26 12:55] LABS: AMPHETAMINES SCREEN, URINE NEGATIVE (NEGATIVE); BARBITURATE SCREEN,URINE NEGATIVE (NEGATIVE); BENZODIAZEPINES SCREEN,URINE NEGATIVE (NEGATIVE); METHADONE SCREEN, URINE NEGATIVE (NEGATIVE); METHAMPHETAMINES SCREEN, URINE PRESUMPTIVE POSITIVE (NEGATIVE); OXYCODONE SCREEN,URINE NEGATIVE (NEGATIVE); PROPOXYPHENE SCREEN,URINE NEGATIVE (NEGATIVE); THC SCREEN,URINE 50 NG/ML NEGATIVE (NEGATIVE)
== END 2022-07-26 16:05 | disposition home or self-care (01) ==
LOC: JP.ED 08:32
DX: K70.31 Alcoholic cirrhosis of liver with ascites (principal); D64.9 Anemia, unspecified; I10 Essential (primary) hypertension; J44.9 Chronic obstructive pulmonary disease, unspecified; E11.40 Type 2 diabetes mellitus with diabetic neuropathy, unspecified; F17.210 Nicotine dependence, cigarettes, uncomplicated; Z79.899 Other long term (current) drug therapy; Z79.4 Long term (current) use of insulin
CPT/HCPCS: 36415; 80053; 80305-QW; 80307; 81001; 82140; 83605; 85025; 87070; 87205; 88112; 88305; 99284